=== PATIENT | female | born 1965 | race Two or more races ===

== ENCOUNTER 2016-08-25 09:08 | Outpatient (CLI) | payer MEDICARE, OTHER ==
[~2016-08-25 09:08] MED LIST: ASCO500T9 PO; BLOO-140 IN; DULA0.75 SQ; GLIM4TAB2 PO; IBUP-1955 PO; INSU100C7 SQ; INSU100V11 SQ; LEVO88TA5 PO; METF500T4 PO; MV W1TAB PO; SULF1TAB48 PO
== END 2016-08-25 23:59 | disposition home health service (06) ==
LOC: WOU 09:08
PROVIDERS: ATTEND Podiatrist Foot & Ankle Surgery
DX: E11.610 Type 2 diabetes mellitus with diabetic neuropathic arthropathy (principal); Z87.891 Personal history of nicotine dependence; B35.1 Tinea unguium; E11.42 Type 2 diabetes mellitus with diabetic polyneuropathy; E03.9 Hypothyroidism, unspecified; L97.329 Non-pressure chronic ulcer of left ankle with unspecified severity; M25.372 Other instability, left ankle
CPT/HCPCS: 29445; A6402

== ENCOUNTER 2016-09-04 09:20 | Outpatient (CLI) | payer MEDICARE, OTHER | END 2016-09-04 23:59 | disposition home health service (06) | LOC: WOU 09:20 | PROVIDERS: ATTEND Podiatrist Foot & Ankle Surgery | DX: I96 Gangrene, not elsewhere classified (principal); L97.321 Non-pressure chronic ulcer of left ankle limited to breakdown of skin; B35.1 Tinea unguium; E11.610 Type 2 diabetes mellitus with diabetic neuropathic arthropathy; E11.42 Type 2 diabetes mellitus with diabetic polyneuropathy; M25.372 Other instability, left ankle; E03.9 Hypothyroidism, unspecified; Z83.3 Family history of diabetes mellitus; Z82.3 Family history of stroke; Z82.49 Family history of ischemic heart disease and other diseases of the circulatory system; Z87.891 Personal history of nicotine dependence | CPT/HCPCS: 11042; A6402 ==

== ENCOUNTER 2016-09-16 09:07 | Outpatient (CLI) | payer MEDICARE, OTHER | END 2016-09-16 23:59 | disposition home health service (06) | LOC: WOU 09:07 | PROVIDERS: ATTEND Podiatrist Foot & Ankle Surgery | DX: E11.622 Type 2 diabetes mellitus with other skin ulcer (principal); L97.321 Non-pressure chronic ulcer of left ankle limited to breakdown of skin; E11.610 Type 2 diabetes mellitus with diabetic neuropathic arthropathy; E11.42 Type 2 diabetes mellitus with diabetic polyneuropathy; E03.9 Hypothyroidism, unspecified; Z87.891 Personal history of nicotine dependence | CPT/HCPCS: 11042; A6402 ==

== ENCOUNTER 2016-09-22 09:15 | Outpatient (CLI) | payer MEDICARE, OTHER ==
[2016-09-22] MEDS ORDERED: CEFTRIAXONE 1 G VIAL IM ONE (11:00)
[2016-09-22 11:04] LABS: CALCIUM, SERUM 9.1 mg/dL (8.5-10.1); CREATININE 1.2 mg/dL (0.6-1.3); POTASSIUM 4.5 mmol/L (3.5-5.1)
[2016-09-22 11:07] LABS: BASOPHILS # (AUTO) 0.1 /CMM (0.0-0.2); BASOPHILS % (AUTO) 0.8 % (0.0-2.0); DIFF TOTAL % 100 %; EOSINOPHILS # (AUTO) 0.3 /CMM (0.0-0.7); EOSINOPHILS % (AUTO) 4.4 % (0.0-6.0); HEMATOCRIT 28 % (33-45); HEMOGLOBIN 9.1 g/dL (11.5-14.8); LYMPHOCYTES # (AUTO) 1.6 /CMM (0.8-4.8); LYMPHOCYTES % (AUTO) 22.6 % (20.0-44.0); MEAN CORPUSCULAR HEMOGLOBIN 24 PG (26.0-33.0); MEAN CORPUSCULAR HGB CONC 33 g/dl (31.0-36.0); MEAN CORPUSCULAR VOLUME 74 fL (82-100); MONOCYTES # (AUTO) 0.3 /CMM (0.1-1.30); MONOCYTES % (AUTO) 4.4 % (2.0-12.0); NEUTROPHILS # (AUTO) 4.7 /CMM (1.8-8.9); NEUTROPHILS % (AUTO) 67.8 % (43.0-81.0); PLATELET COUNT (AUTO) 553 /CMM (150-450); RED BLOOD CELL COUNT(AUTO) 3.78 MIL/uL (4.0-5.2)
[2016-09-22 11:42] LABS: ERYTHROCYTE SEDIMENTATION RATE > 140 MM/HR (0-30)
== END 2016-09-22 23:59 | disposition home health service (06) ==
LOC: WOU 09:15
PROVIDERS: ATTEND Podiatrist Foot & Ankle Surgery
DX: E11.622 Type 2 diabetes mellitus with other skin ulcer (principal); L97.329 Non-pressure chronic ulcer of left ankle with unspecified severity; E11.610 Type 2 diabetes mellitus with diabetic neuropathic arthropathy; E11.42 Type 2 diabetes mellitus with diabetic polyneuropathy; L76.34 Postprocedural seroma of skin and subcutaneous tissue following other procedure; L03.116 Cellulitis of left lower limb; M71.072 Abscess of bursa, left ankle and foot; Z79.4 Long term (current) use of insulin; E03.9 Hypothyroidism, unspecified; Z79.899 Other long term (current) drug therapy; Z83.3 Family history of diabetes mellitus; Z82.3 Family history of stroke; Z82.49 Family history of ischemic heart disease and other diseases of the circulatory system; Z87.891 Personal history of nicotine dependence
CPT/HCPCS: 10140; 36415; 80048-TC; 85025-TC; 85652-TC; 87070-TC; 96372; A6402; A6407; J0696

== ENCOUNTER 2016-09-25 09:42 | Outpatient (CLI) | payer MEDICARE, OTHER | END 2016-09-25 23:59 | disposition home health service (06) | LOC: WOU 09:42 | PROVIDERS: ATTEND Podiatrist Foot & Ankle Surgery | DX: L03.116 Cellulitis of left lower limb (principal); B95.0 Streptococcus, group A, as the cause of diseases classified elsewhere; B95.1 Streptococcus, group B, as the cause of diseases classified elsewhere; B95.61 Methicillin susceptible Staphylococcus aureus infection as the cause of diseases classified elsewhere; M25.372 Other instability, left ankle; E11.610 Type 2 diabetes mellitus with diabetic neuropathic arthropathy; Z87.891 Personal history of nicotine dependence; M71.072 Abscess of bursa, left ankle and foot | CPT/HCPCS: A6402; A6407; G0463 ==

== ENCOUNTER 2016-09-30 08:30 | Outpatient (CLI) | payer MEDICARE, OTHER | END 2016-09-30 23:59 | disposition home health service (06) | LOC: WOU 08:30 | PROVIDERS: ATTEND Podiatrist Foot & Ankle Surgery | DX: E11.622 Type 2 diabetes mellitus with other skin ulcer (principal); L97.323 Non-pressure chronic ulcer of left ankle with necrosis of muscle; E11.42 Type 2 diabetes mellitus with diabetic polyneuropathy; E66.9 Obesity, unspecified; Z68.37 Body mass index [BMI] 37.0-37.9, adult; Z71.3 Dietary counseling and surveillance; E11.610 Type 2 diabetes mellitus with diabetic neuropathic arthropathy; E11.65 Type 2 diabetes mellitus with hyperglycemia; M84.472K Pathological fracture, left ankle, subsequent encounter for fracture with nonunion; M71.072 Abscess of bursa, left ankle and foot; B95.0 Streptococcus, group A, as the cause of diseases classified elsewhere; B95.1 Streptococcus, group B, as the cause of diseases classified elsewhere; B95.4 Other streptococcus as the cause of diseases classified elsewhere | CPT/HCPCS: 11043; A6402; A6407 ==

== ENCOUNTER 2016-10-07 08:20 | Outpatient (CLI) | payer MEDICARE, OTHER | END 2016-10-07 23:59 | disposition home health service (06) | LOC: WOU 08:20 | PROVIDERS: ATTEND Podiatrist Foot & Ankle Surgery | DX: E11.622 Type 2 diabetes mellitus with other skin ulcer (principal); L97.323 Non-pressure chronic ulcer of left ankle with necrosis of muscle; E11.42 Type 2 diabetes mellitus with diabetic polyneuropathy; M71.072 Abscess of bursa, left ankle and foot; B95.0 Streptococcus, group A, as the cause of diseases classified elsewhere; B95.1 Streptococcus, group B, as the cause of diseases classified elsewhere; B95.61 Methicillin susceptible Staphylococcus aureus infection as the cause of diseases classified elsewhere; E11.610 Type 2 diabetes mellitus with diabetic neuropathic arthropathy; M84.472K Pathological fracture, left ankle, subsequent encounter for fracture with nonunion; R60.0 Localized edema; E05.90 Thyrotoxicosis, unspecified without thyrotoxic crisis or storm; Z79.84 Long term (current) use of oral hypoglycemic drugs; Z79.4 Long term (current) use of insulin; Z79.899 Other long term (current) drug therapy | CPT/HCPCS: 11043; A6402; A6407 ==

== ENCOUNTER 2016-10-14 08:15 | Outpatient (CLI) | payer MEDICARE, OTHER | END 2016-10-14 23:59 | disposition home health service (06) | LOC: WOU 08:15 | PROVIDERS: ATTEND Podiatrist Foot & Ankle Surgery | DX: E11.622 Type 2 diabetes mellitus with other skin ulcer (principal); L97.323 Non-pressure chronic ulcer of left ankle with necrosis of muscle; E11.610 Type 2 diabetes mellitus with diabetic neuropathic arthropathy; E11.42 Type 2 diabetes mellitus with diabetic polyneuropathy; E05.90 Thyrotoxicosis, unspecified without thyrotoxic crisis or storm; Z87.891 Personal history of nicotine dependence; M71.072 Abscess of bursa, left ankle and foot; L03.116 Cellulitis of left lower limb; B95.0 Streptococcus, group A, as the cause of diseases classified elsewhere; B95.61 Methicillin susceptible Staphylococcus aureus infection as the cause of diseases classified elsewhere | CPT/HCPCS: 11043; 87070; 87077; A6402; A6407 ==

== ENCOUNTER 2016-10-21 10:38 | Outpatient (CLI) | payer MEDICARE, OTHER | END 2016-10-21 23:59 | disposition home health service (06) | LOC: WOU 10:38 | PROVIDERS: ATTEND Podiatrist Foot & Ankle Surgery | DX: E11.622 Type 2 diabetes mellitus with other skin ulcer (principal); L97.323 Non-pressure chronic ulcer of left ankle with necrosis of muscle; E11.42 Type 2 diabetes mellitus with diabetic polyneuropathy; E11.610 Type 2 diabetes mellitus with diabetic neuropathic arthropathy; L03.116 Cellulitis of left lower limb; B95.0 Streptococcus, group A, as the cause of diseases classified elsewhere; B95.61 Methicillin susceptible Staphylococcus aureus infection as the cause of diseases classified elsewhere; B96.89 Other specified bacterial agents as the cause of diseases classified elsewhere; M84.672K Pathological fracture in other disease, left ankle, subsequent encounter for fracture with nonunion; M25.372 Other instability, left ankle; M71.072 Abscess of bursa, left ankle and foot; Z79.4 Long term (current) use of insulin; Z79.84 Long term (current) use of oral hypoglycemic drugs; Z79.899 Other long term (current) drug therapy | CPT/HCPCS: 11043; A6402; A6407 ==

== ENCOUNTER 2016-10-28 07:57 | Outpatient (CLI) | payer MEDICARE, OTHER | END 2016-10-28 23:59 | disposition home health service (06) | LOC: WOU 07:57 | PROVIDERS: ATTEND Podiatrist Foot & Ankle Surgery | DX: E11.622 Type 2 diabetes mellitus with other skin ulcer (principal); L97.323 Non-pressure chronic ulcer of left ankle with necrosis of muscle; E11.610 Type 2 diabetes mellitus with diabetic neuropathic arthropathy; E11.42 Type 2 diabetes mellitus with diabetic polyneuropathy; M84.672K Pathological fracture in other disease, left ankle, subsequent encounter for fracture with nonunion; M25.372 Other instability, left ankle; Z79.4 Long term (current) use of insulin; Z79.84 Long term (current) use of oral hypoglycemic drugs; Z79.899 Other long term (current) drug therapy; Z87.891 Personal history of nicotine dependence; E05.90 Thyrotoxicosis, unspecified without thyrotoxic crisis or storm | CPT/HCPCS: 11043; 87070; A6402; A6407; 87186-TC ==

== ENCOUNTER 2016-11-04 08:20 | Outpatient (CLI) | payer MEDICARE, OTHER | END 2016-11-04 23:59 | disposition home health service (06) | LOC: WOU 08:20 | PROVIDERS: ATTEND Podiatrist Foot & Ankle Surgery | DX: E11.622 Type 2 diabetes mellitus with other skin ulcer (principal); L97.323 Non-pressure chronic ulcer of left ankle with necrosis of muscle; E11.610 Type 2 diabetes mellitus with diabetic neuropathic arthropathy; E11.42 Type 2 diabetes mellitus with diabetic polyneuropathy; M84.472K Pathological fracture, left ankle, subsequent encounter for fracture with nonunion; B95.8 Unspecified staphylococcus as the cause of diseases classified elsewhere; E05.90 Thyrotoxicosis, unspecified without thyrotoxic crisis or storm; Z87.891 Personal history of nicotine dependence; L03.116 Cellulitis of left lower limb | CPT/HCPCS: 11043; A6402 ==

== ENCOUNTER 2016-11-13 09:00 | Outpatient (CLI) | payer MEDICARE, OTHER | END 2016-11-13 23:59 | disposition home health service (06) | LOC: WOU 09:00 | PROVIDERS: ATTEND Podiatrist Foot & Ankle Surgery | DX: E11.622 Type 2 diabetes mellitus with other skin ulcer (principal); L97.323 Non-pressure chronic ulcer of left ankle with necrosis of muscle; E11.610 Type 2 diabetes mellitus with diabetic neuropathic arthropathy; E11.40 Type 2 diabetes mellitus with diabetic neuropathy, unspecified; M84.472K Pathological fracture, left ankle, subsequent encounter for fracture with nonunion; Z74.09 Other reduced mobility; E03.9 Hypothyroidism, unspecified; L03.116 Cellulitis of left lower limb; Z79.4 Long term (current) use of insulin; Z79.84 Long term (current) use of oral hypoglycemic drugs | CPT/HCPCS: 11043; A6402; A6407 ==

== ENCOUNTER 2016-11-18 08:15 | Outpatient (CLI) | payer MEDICARE, OTHER | END 2016-11-18 09:13 | disposition home or self-care (01) | LOC: RAD 08:15 | PROVIDERS: ATTEND Family Medicine | DX: R06.09 Other forms of dyspnea (principal) | CPT/HCPCS: 71020-TC ==

== ENCOUNTER 2016-11-18 10:02 | Outpatient (CLI) | payer MEDICARE, OTHER | END 2016-11-18 23:59 | disposition home health service (06) | LOC: WOU 10:02 | PROVIDERS: ATTEND Podiatrist Foot & Ankle Surgery | DX: E11.622 Type 2 diabetes mellitus with other skin ulcer (principal); L97.323 Non-pressure chronic ulcer of left ankle with necrosis of muscle; E11.610 Type 2 diabetes mellitus with diabetic neuropathic arthropathy; E11.40 Type 2 diabetes mellitus with diabetic neuropathy, unspecified; M84.472K Pathological fracture, left ankle, subsequent encounter for fracture with nonunion; Z74.09 Other reduced mobility; E03.9 Hypothyroidism, unspecified; Z79.4 Long term (current) use of insulin; Z79.84 Long term (current) use of oral hypoglycemic drugs | CPT/HCPCS: 11043; 87070-TC; A6402; A6407 ==

== ENCOUNTER 2016-12-02 09:46 | Outpatient (CLI) | payer MEDICARE, OTHER | END 2016-12-02 23:59 | disposition home health service (06) | LOC: WOU 09:46 | PROVIDERS: ATTEND Podiatrist Foot & Ankle Surgery | DX: E11.621 Type 2 diabetes mellitus with foot ulcer (principal); L97.323 Non-pressure chronic ulcer of left ankle with necrosis of muscle; E11.65 Type 2 diabetes mellitus with hyperglycemia; E11.610 Type 2 diabetes mellitus with diabetic neuropathic arthropathy; E11.40 Type 2 diabetes mellitus with diabetic neuropathy, unspecified; M84.472K Pathological fracture, left ankle, subsequent encounter for fracture with nonunion; E03.9 Hypothyroidism, unspecified; Z79.4 Long term (current) use of insulin; Z79.84 Long term (current) use of oral hypoglycemic drugs; Z79.899 Other long term (current) drug therapy | CPT/HCPCS: 11043; 87070; A6402; A6407 ==

== ENCOUNTER 2016-12-16 09:30 | Outpatient (CLI) | payer MEDICARE, OTHER | END 2016-12-16 23:59 | disposition home health service (06) | LOC: WOU 09:30 | PROVIDERS: ATTEND Podiatrist Foot & Ankle Surgery | DX: E11.622 Type 2 diabetes mellitus with other skin ulcer (principal); L97.323 Non-pressure chronic ulcer of left ankle with necrosis of muscle; E11.610 Type 2 diabetes mellitus with diabetic neuropathic arthropathy; E11.42 Type 2 diabetes mellitus with diabetic polyneuropathy; Z79.84 Long term (current) use of oral hypoglycemic drugs; Z79.4 Long term (current) use of insulin; E05.90 Thyrotoxicosis, unspecified without thyrotoxic crisis or storm; M84.472K Pathological fracture, left ankle, subsequent encounter for fracture with nonunion; Z87.891 Personal history of nicotine dependence; B35.1 Tinea unguium; M71.072 Abscess of bursa, left ankle and foot | CPT/HCPCS: 11043; A6402 ×2 ==

== ENCOUNTER 2016-12-30 10:00 | Outpatient (CLI) | payer MEDICARE, OTHER | END 2016-12-30 23:59 | disposition home health service (06) | LOC: WOU 10:00 | PROVIDERS: ATTEND Podiatrist Foot & Ankle Surgery | DX: E11.622 Type 2 diabetes mellitus with other skin ulcer (principal); L97.321 Non-pressure chronic ulcer of left ankle limited to breakdown of skin; E11.610 Type 2 diabetes mellitus with diabetic neuropathic arthropathy; E11.42 Type 2 diabetes mellitus with diabetic polyneuropathy; Z79.84 Long term (current) use of oral hypoglycemic drugs; Z79.4 Long term (current) use of insulin; E05.90 Thyrotoxicosis, unspecified without thyrotoxic crisis or storm; M84.472K Pathological fracture, left ankle, subsequent encounter for fracture with nonunion; Z87.891 Personal history of nicotine dependence; B35.1 Tinea unguium | CPT/HCPCS: 11042; A6402 ==

== ENCOUNTER 2017-01-12 08:15 | Outpatient (CLI) | payer MEDICARE, OTHER | END 2017-01-12 23:59 | disposition home health service (06) | LOC: WOU 08:15 | PROVIDERS: ATTEND Podiatrist Foot & Ankle Surgery | DX: E11.622 Type 2 diabetes mellitus with other skin ulcer (principal); L97.321 Non-pressure chronic ulcer of left ankle limited to breakdown of skin; E11.610 Type 2 diabetes mellitus with diabetic neuropathic arthropathy; E11.42 Type 2 diabetes mellitus with diabetic polyneuropathy; Z79.84 Long term (current) use of oral hypoglycemic drugs; Z79.4 Long term (current) use of insulin; M84.472K Pathological fracture, left ankle, subsequent encounter for fracture with nonunion; Z87.891 Personal history of nicotine dependence; L03.116 Cellulitis of left lower limb; E66.9 Obesity, unspecified; Z68.37 Body mass index [BMI] 37.0-37.9, adult; L60.0 Ingrowing nail; L03.032 Cellulitis of left toe; T81.30XA Disruption of wound, unspecified, initial encounter | CPT/HCPCS: A6402 ==

== ENCOUNTER 2017-01-22 08:26 | Outpatient (CLI) | payer MEDICARE, OTHER ==
[2017-01-22] MEDS ORDERED: ATOR10TA PO (12:32)
[2017-01-22] MEDS ORDERED: GLIM4TAB2 PO (12:32)
[2017-01-22] MEDS ORDERED: EMPA10TA PO (12:32)
[2017-01-22] MEDS ORDERED: HYDR10SY7 PO (12:32)
[2017-01-22] MEDS ORDERED: GABA-534 PO (12:32)
[2017-01-22] MEDS ORDERED: CHOL100044 PO (12:32)
[2017-01-22] MEDS ORDERED: MEGE400O PO (12:32)
[2017-01-22] MEDS ORDERED: INSU100V11 SQ (12:32)
[2017-01-22] MEDS ORDERED: DULA0.75 SQ (12:32)
[2017-01-22] MEDS ORDERED: LEVO88TA5 PO (12:32)
[2017-01-22] MEDS ORDERED: INSU100V7 SQ (12:32)
[2017-01-22] MEDS ORDERED: ASPI81TA2 PO (12:32)
== END 2017-01-22 23:59 | disposition other institution (70) ==
LOC: WOU 08:26
PROVIDERS: ATTEND Podiatrist Foot & Ankle Surgery
DX: E11.52 Type 2 diabetes mellitus with diabetic peripheral angiopathy with gangrene (principal); L03.032 Cellulitis of left toe; E11.621 Type 2 diabetes mellitus with foot ulcer; L97.321 Non-pressure chronic ulcer of left ankle limited to breakdown of skin; L97.529 Non-pressure chronic ulcer of other part of left foot with unspecified severity; E11.622 Type 2 diabetes mellitus with other skin ulcer; E11.42 Type 2 diabetes mellitus with diabetic polyneuropathy; M71.072 Abscess of bursa, left ankle and foot; E11.610 Type 2 diabetes mellitus with diabetic neuropathic arthropathy; Z87.311 Personal history of (healed) other pathological fracture
CPT/HCPCS: A6402; G0463

== ENCOUNTER 2017-02-03 11:00 | Outpatient (CLI) | payer MEDICARE, OTHER ==
[~2017-02-03 11:00] MED LIST changes: -ASCO500T9 PO; +ASPI81TA2 PO; +ATOR10TA PO; +CHOL100044 PO; +EMPA10TA PO; +GABA-534 PO; +HYDR10SY7 PO; -IBUP-1955 PO; -INSU100C7 SQ; +INSU100V7 SQ; +MEGE400O PO; -METF500T4 PO; -MV W1TAB PO; -SULF1TAB48 PO
== END 2017-02-03 23:59 | disposition home health service (06) ==
LOC: WOU 11:00
PROVIDERS: ATTEND Podiatrist Foot & Ankle Surgery
DX: E11.621 Type 2 diabetes mellitus with foot ulcer (principal); L97.521 Non-pressure chronic ulcer of other part of left foot limited to breakdown of skin; E11.42 Type 2 diabetes mellitus with diabetic polyneuropathy; E11.610 Type 2 diabetes mellitus with diabetic neuropathic arthropathy; Z87.891 Personal history of nicotine dependence; L03.116 Cellulitis of left lower limb; Z79.84 Long term (current) use of oral hypoglycemic drugs; Z79.4 Long term (current) use of insulin; Z79.899 Other long term (current) drug therapy; E05.90 Thyrotoxicosis, unspecified without thyrotoxic crisis or storm
CPT/HCPCS: A6207; A6402; G0463

== ENCOUNTER 2017-02-10 08:15 | Outpatient (CLI) | payer MEDICARE, OTHER | END 2017-02-10 23:59 | disposition home health service (06) | LOC: WOU 08:15 | PROVIDERS: ATTEND Podiatrist Foot & Ankle Surgery | DX: E11.621 Type 2 diabetes mellitus with foot ulcer (principal); L97.523 Non-pressure chronic ulcer of other part of left foot with necrosis of muscle; L60.0 Ingrowing nail; L03.032 Cellulitis of left toe; E11.65 Type 2 diabetes mellitus with hyperglycemia; E11.51 Type 2 diabetes mellitus with diabetic peripheral angiopathy without gangrene; E11.42 Type 2 diabetes mellitus with diabetic polyneuropathy; E66.9 Obesity, unspecified; Z68.37 Body mass index [BMI] 37.0-37.9, adult; I10 Essential (primary) hypertension; E11.610 Type 2 diabetes mellitus with diabetic neuropathic arthropathy | CPT/HCPCS: 11043; 11765; A6402 ×2; A6452; Z7610 ==

== ENCOUNTER 2017-02-17 11:19 | Outpatient (CLI) | payer MEDICARE, OTHER | END 2017-02-17 23:59 | disposition home health service (06) | LOC: WOU 11:19 | PROVIDERS: ATTEND Podiatrist Foot & Ankle Surgery | DX: E11.621 Type 2 diabetes mellitus with foot ulcer (principal); L97.523 Non-pressure chronic ulcer of other part of left foot with necrosis of muscle; E11.42 Type 2 diabetes mellitus with diabetic polyneuropathy; E11.610 Type 2 diabetes mellitus with diabetic neuropathic arthropathy; E03.9 Hypothyroidism, unspecified; Z87.891 Personal history of nicotine dependence; Z82.3 Family history of stroke; Z83.3 Family history of diabetes mellitus; Z82.49 Family history of ischemic heart disease and other diseases of the circulatory system; Z79.4 Long term (current) use of insulin; Z79.84 Long term (current) use of oral hypoglycemic drugs; Z79.82 Long term (current) use of aspirin | CPT/HCPCS: 11043; A6402 ==

== ENCOUNTER 2017-03-02 09:10 | Outpatient (CLI) | payer MEDICARE, OTHER | END 2017-03-02 23:59 | disposition home health service (06) | LOC: WOU 09:10 | PROVIDERS: ATTEND Podiatrist Foot & Ankle Surgery | DX: E11.621 Type 2 diabetes mellitus with foot ulcer (principal); L97.521 Non-pressure chronic ulcer of other part of left foot limited to breakdown of skin; E11.42 Type 2 diabetes mellitus with diabetic polyneuropathy; E11.610 Type 2 diabetes mellitus with diabetic neuropathic arthropathy; R60.0 Localized edema; Z87.891 Personal history of nicotine dependence; M25.372 Other instability, left ankle; Z79.4 Long term (current) use of insulin; Z79.84 Long term (current) use of oral hypoglycemic drugs; Z79.82 Long term (current) use of aspirin | CPT/HCPCS: 11042; A6402 ==

== ENCOUNTER 2017-03-10 09:20 | Outpatient (CLI) | payer MEDICARE, OTHER | END 2017-03-10 23:59 | disposition home health service (06) | LOC: WOU 09:20 | PROVIDERS: ATTEND Podiatrist Foot & Ankle Surgery | DX: E11.621 Type 2 diabetes mellitus with foot ulcer (principal); L97.521 Non-pressure chronic ulcer of other part of left foot limited to breakdown of skin; E11.42 Type 2 diabetes mellitus with diabetic polyneuropathy; R60.0 Localized edema; M25.372 Other instability, left ankle; M84.6 Pathological fracture in other disease | CPT/HCPCS: 11042; A6402 ×2 ==

== ENCOUNTER 2017-03-19 11:15 | Outpatient (CLI) | payer MEDICARE, OTHER | END 2017-03-19 23:59 | disposition home health service (06) | LOC: WOU 11:15 | PROVIDERS: ATTEND Podiatrist Foot & Ankle Surgery | DX: E11.621 Type 2 diabetes mellitus with foot ulcer (principal); L97.521 Non-pressure chronic ulcer of other part of left foot limited to breakdown of skin; E11.610 Type 2 diabetes mellitus with diabetic neuropathic arthropathy; M25.372 Other instability, left ankle; M84.6 Pathological fracture in other disease; R60.0 Localized edema | CPT/HCPCS: 15275; A6402; Q4133 ==

== ENCOUNTER 2017-03-30 09:39 | Outpatient (CLI) | payer MEDICARE, OTHER | END 2017-03-30 23:59 | disposition home health service (06) | LOC: WOU 09:39 | PROVIDERS: ATTEND Podiatrist Foot & Ankle Surgery | DX: E11.621 Type 2 diabetes mellitus with foot ulcer (principal); L97.521 Non-pressure chronic ulcer of other part of left foot limited to breakdown of skin; E11.610 Type 2 diabetes mellitus with diabetic neuropathic arthropathy; E11.42 Type 2 diabetes mellitus with diabetic polyneuropathy; Z79.4 Long term (current) use of insulin; Z79.84 Long term (current) use of oral hypoglycemic drugs; Z79.82 Long term (current) use of aspirin; R60.0 Localized edema | CPT/HCPCS: 15275; A6402; Q4133 ==

== ENCOUNTER 2017-04-05 10:35 | Outpatient (CLI) | payer MEDICARE, OTHER ==
[2017-04-05] MEDS ORDERED: GADOVERSETAMIDE 5 MMOL/10 ML VIAL IJ ONE (10:36)
== END 2017-04-05 23:59 | disposition home or self-care (01) ==
LOC: MRI 10:35
PROVIDERS: ATTEND Family Medicine
DX: K86.89 Other specified diseases of pancreas (principal)
CPT/HCPCS: 72197-TC; 74183-TC; A9579

== ENCOUNTER 2017-04-06 08:38 | Outpatient (CLI) | payer MEDICARE, OTHER | END 2017-04-06 23:59 | disposition home health service (06) | LOC: WOU 08:38 | PROVIDERS: ATTEND Podiatrist Foot & Ankle Surgery | DX: E11.621 Type 2 diabetes mellitus with foot ulcer (principal); L97.521 Non-pressure chronic ulcer of other part of left foot limited to breakdown of skin; E11.42 Type 2 diabetes mellitus with diabetic polyneuropathy; E11.610 Type 2 diabetes mellitus with diabetic neuropathic arthropathy; R60.0 Localized edema; M25.372 Other instability, left ankle; Z79.4 Long term (current) use of insulin; Z79.84 Long term (current) use of oral hypoglycemic drugs; Z79.899 Other long term (current) drug therapy | CPT/HCPCS: 15275; A6402 ==

== ENCOUNTER 2017-04-13 10:27 | Outpatient (CLI) | payer MEDICARE, OTHER | END 2017-04-13 23:59 | disposition home health service (06) | LOC: WOU 10:27 | PROVIDERS: ATTEND Podiatrist Foot & Ankle Surgery | DX: E11.42 Type 2 diabetes mellitus with diabetic polyneuropathy (principal); E11.610 Type 2 diabetes mellitus with diabetic neuropathic arthropathy; R60.0 Localized edema; M25.372 Other instability, left ankle; E53.8 Deficiency of other specified B group vitamins; Z79.84 Long term (current) use of oral hypoglycemic drugs; Z79.4 Long term (current) use of insulin | CPT/HCPCS: A6402; G0463 ==

== ENCOUNTER 2017-04-27 13:30 | Outpatient (CLI) | payer MEDICARE, OTHER | END 2017-04-27 23:59 | disposition home health service (06) | LOC: WOU 13:30 | PROVIDERS: ATTEND Podiatrist Foot & Ankle Surgery | DX: E11.621 Type 2 diabetes mellitus with foot ulcer (principal); E11.610 Type 2 diabetes mellitus with diabetic neuropathic arthropathy; E11.42 Type 2 diabetes mellitus with diabetic polyneuropathy; Z79.84 Long term (current) use of oral hypoglycemic drugs; Z79.4 Long term (current) use of insulin; M84.472K Pathological fracture, left ankle, subsequent encounter for fracture with nonunion; L03.116 Cellulitis of left lower limb; L97.521 Non-pressure chronic ulcer of other part of left foot limited to breakdown of skin | CPT/HCPCS: 11042; A6402 ==

== ENCOUNTER 2017-05-04 08:40 | Outpatient (CLI) | payer MEDICARE, OTHER | END 2017-05-04 23:59 | disposition home health service (06) | DX: E11.621 Type 2 diabetes mellitus with foot ulcer (principal); L97.521 Non-pressure chronic ulcer of other part of left foot limited to breakdown of skin; L97.323 Non-pressure chronic ulcer of left ankle with necrosis of muscle; E11.622 Type 2 diabetes mellitus with other skin ulcer; E11.610 Type 2 diabetes mellitus with diabetic neuropathic arthropathy; E11.42 Type 2 diabetes mellitus with diabetic polyneuropathy; Z79.84 Long term (current) use of oral hypoglycemic drugs; Z79.4 Long term (current) use of insulin; M84.472K Pathological fracture, left ankle, subsequent encounter for fracture with nonunion; L03.116 Cellulitis of left lower limb; R60.0 Localized edema | CPT/HCPCS: 11042; 11043; A6402 ==

== ENCOUNTER 2017-05-11 08:35 | Outpatient (CLI) | payer MEDICARE, OTHER | END 2017-05-11 23:59 | disposition home health service (06) | LOC: WOU 08:35 | PROVIDERS: ATTEND Podiatrist Foot & Ankle Surgery | DX: E11.621 Type 2 diabetes mellitus with foot ulcer (principal); L97.521 Non-pressure chronic ulcer of other part of left foot limited to breakdown of skin; E11.622 Type 2 diabetes mellitus with other skin ulcer; E11.610 Type 2 diabetes mellitus with diabetic neuropathic arthropathy; E11.42 Type 2 diabetes mellitus with diabetic polyneuropathy; Z79.84 Long term (current) use of oral hypoglycemic drugs; Z79.4 Long term (current) use of insulin; L97.323 Non-pressure chronic ulcer of left ankle with necrosis of muscle; M84.472K Pathological fracture, left ankle, subsequent encounter for fracture with nonunion; E66.9 Obesity, unspecified; Z68.37 Body mass index [BMI] 37.0-37.9, adult; Z71.3 Dietary counseling and surveillance; R60.0 Localized edema; M25.372 Other instability, left ankle | CPT/HCPCS: 11042; 11043; 97605; A6402 ==

== ENCOUNTER 2017-05-14 08:45 | Outpatient (CLI) | payer MEDICARE, OTHER | END 2017-05-14 23:59 | disposition home health service (06) | LOC: WOU 08:45 | PROVIDERS: ATTEND Podiatrist Foot & Ankle Surgery | DX: E11.622 Type 2 diabetes mellitus with other skin ulcer (principal); L97.323 Non-pressure chronic ulcer of left ankle with necrosis of muscle; E11.610 Type 2 diabetes mellitus with diabetic neuropathic arthropathy; M84.472K Pathological fracture, left ankle, subsequent encounter for fracture with nonunion; M25.372 Other instability, left ankle; Z79.82 Long term (current) use of aspirin; Z79.84 Long term (current) use of oral hypoglycemic drugs; Z79.4 Long term (current) use of insulin | CPT/HCPCS: 11043; 87070-TC; 87186-TC; 97605-TC; A6402 ==

== ENCOUNTER 2017-05-21 09:29 | Outpatient (CLI) | payer MEDICARE, OTHER | END 2017-05-21 23:59 | disposition home health service (06) | LOC: WOU 09:29 | PROVIDERS: ATTEND Podiatrist Foot & Ankle Surgery | DX: E11.622 Type 2 diabetes mellitus with other skin ulcer (principal); L97.323 Non-pressure chronic ulcer of left ankle with necrosis of muscle; L03.116 Cellulitis of left lower limb; B96.5 Pseudomonas (aeruginosa) (mallei) (pseudomallei) as the cause of diseases classified elsewhere; B37.89 Other sites of candidiasis; M84.472K Pathological fracture, left ankle, subsequent encounter for fracture with nonunion; E11.610 Type 2 diabetes mellitus with diabetic neuropathic arthropathy; Z79.84 Long term (current) use of oral hypoglycemic drugs; Z79.4 Long term (current) use of insulin; Z79.82 Long term (current) use of aspirin | CPT/HCPCS: 11043; 97605-TC; A6402 ==

== ENCOUNTER 2017-05-25 14:10 | Outpatient (CLI) | payer MEDICARE, OTHER | END 2017-05-25 23:59 | disposition home or self-care (01) | LOC: WOU 14:10 | PROVIDERS: ATTEND Internal Medicine Infectious Disease | DX: E11.69 Type 2 diabetes mellitus with other specified complication (principal); E11.610 Type 2 diabetes mellitus with diabetic neuropathic arthropathy; E11.621 Type 2 diabetes mellitus with foot ulcer; L97.529 Non-pressure chronic ulcer of other part of left foot with unspecified severity; E11.40 Type 2 diabetes mellitus with diabetic neuropathy, unspecified; M86.672 Other chronic osteomyelitis, left ankle and foot; B96.5 Pseudomonas (aeruginosa) (mallei) (pseudomallei) as the cause of diseases classified elsewhere; E66.9 Obesity, unspecified; B37.9 Candidiasis, unspecified | CPT/HCPCS: G0463 ==

== ENCOUNTER 2017-06-01 09:15 | Outpatient (CLI) | payer MEDICARE, OTHER | END 2017-06-01 23:59 | disposition home health service (06) | LOC: WOU 09:15 | PROVIDERS: ATTEND Podiatrist Foot & Ankle Surgery | DX: E11.622 Type 2 diabetes mellitus with other skin ulcer (principal); L97.323 Non-pressure chronic ulcer of left ankle with necrosis of muscle; E11.69 Type 2 diabetes mellitus with other specified complication; E11.610 Type 2 diabetes mellitus with diabetic neuropathic arthropathy; M86.672 Other chronic osteomyelitis, left ankle and foot; Z79.4 Long term (current) use of insulin; Z79.84 Long term (current) use of oral hypoglycemic drugs; M84.472K Pathological fracture, left ankle, subsequent encounter for fracture with nonunion | CPT/HCPCS: 11043; 97605; A6402 ==

== ENCOUNTER 2017-06-08 09:30 | Outpatient (CLI) | payer MEDICARE, OTHER | END 2017-06-08 23:59 | disposition home health service (06) | LOC: WOU 09:30 | PROVIDERS: ATTEND Podiatrist Foot & Ankle Surgery | DX: E11.622 Type 2 diabetes mellitus with other skin ulcer (principal); L97.323 Non-pressure chronic ulcer of left ankle with necrosis of muscle; E11.610 Type 2 diabetes mellitus with diabetic neuropathic arthropathy; E11.69 Type 2 diabetes mellitus with other specified complication; M86.672 Other chronic osteomyelitis, left ankle and foot; M84.472K Pathological fracture, left ankle, subsequent encounter for fracture with nonunion; R60.0 Localized edema; M25.372 Other instability, left ankle | CPT/HCPCS: 11043; 97605; A6402 ==

== ENCOUNTER 2017-06-18 09:37 | Outpatient (CLI) | payer MEDICARE, OTHER | END 2017-06-18 23:59 | disposition home health service (06) | LOC: WOU 09:37 | PROVIDERS: ATTEND Podiatrist Foot & Ankle Surgery | DX: E11.622 Type 2 diabetes mellitus with other skin ulcer (principal); L97.323 Non-pressure chronic ulcer of left ankle with necrosis of muscle; M84.472K Pathological fracture, left ankle, subsequent encounter for fracture with nonunion; E11.610 Type 2 diabetes mellitus with diabetic neuropathic arthropathy; E11.42 Type 2 diabetes mellitus with diabetic polyneuropathy; R60.0 Localized edema; E11.69 Type 2 diabetes mellitus with other specified complication; M86.672 Other chronic osteomyelitis, left ankle and foot; M25.372 Other instability, left ankle; Z79.84 Long term (current) use of oral hypoglycemic drugs; Z79.899 Other long term (current) drug therapy | CPT/HCPCS: 11043; 97605; A6402 ==

== ENCOUNTER 2017-06-25 08:00 | Outpatient (CLI) | payer MEDICARE, OTHER | END 2017-06-25 23:59 | disposition home health service (06) | LOC: WOU 08:00 | PROVIDERS: ATTEND Podiatrist Foot & Ankle Surgery | DX: E11.622 Type 2 diabetes mellitus with other skin ulcer (principal); L97.323 Non-pressure chronic ulcer of left ankle with necrosis of muscle; E11.610 Type 2 diabetes mellitus with diabetic neuropathic arthropathy; M25.372 Other instability, left ankle; E11.42 Type 2 diabetes mellitus with diabetic polyneuropathy; E11.69 Type 2 diabetes mellitus with other specified complication; M86.672 Other chronic osteomyelitis, left ankle and foot; M84.472K Pathological fracture, left ankle, subsequent encounter for fracture with nonunion | CPT/HCPCS: 11043; 97605; A6402 ==

== ENCOUNTER 2017-07-02 09:45 | Outpatient (CLI) | payer MEDICARE, OTHER | END 2017-07-02 23:59 | disposition home health service (06) | LOC: WOU 09:45 | PROVIDERS: ATTEND Podiatrist Foot & Ankle Surgery | DX: E11.622 Type 2 diabetes mellitus with other skin ulcer (principal); L97.329 Non-pressure chronic ulcer of left ankle with unspecified severity; E11.610 Type 2 diabetes mellitus with diabetic neuropathic arthropathy; E11.42 Type 2 diabetes mellitus with diabetic polyneuropathy; Z79.4 Long term (current) use of insulin; M84.472K Pathological fracture, left ankle, subsequent encounter for fracture with nonunion; M25.372 Other instability, left ankle | CPT/HCPCS: A6402; G0463 ==

== ENCOUNTER 2017-07-20 10:50 | Outpatient (CLI) | payer MEDICARE, OTHER | END 2017-07-20 23:59 | disposition home health service (06) | LOC: WOU 10:50 | PROVIDERS: ATTEND Podiatrist Foot & Ankle Surgery | DX: E11.610 Type 2 diabetes mellitus with diabetic neuropathic arthropathy (principal); E11.42 Type 2 diabetes mellitus with diabetic polyneuropathy; R60.0 Localized edema; M25.372 Other instability, left ankle; E66.9 Obesity, unspecified; Z68.37 Body mass index [BMI] 37.0-37.9, adult; Z79.4 Long term (current) use of insulin | CPT/HCPCS: A6402; G0463 ==

== ENCOUNTER 2017-08-25 10:38 | Outpatient (CLI) | payer MEDICARE, OTHER ==
[~2017-08-25 10:38] MED LIST changes: +ASPI-1169 PO; -ASPI81TA2 PO; +HYDR10SY16 PO; -HYDR10SY7 PO
== END 2017-08-25 23:59 | disposition home health service (06) ==
LOC: WOU 10:38
PROVIDERS: ATTEND Podiatrist Foot & Ankle Surgery
DX: E11.610 Type 2 diabetes mellitus with diabetic neuropathic arthropathy (principal); E11.42 Type 2 diabetes mellitus with diabetic polyneuropathy; Z86.31 Personal history of diabetic foot ulcer; R26.9 Unspecified abnormalities of gait and mobility; M96.0 Pseudarthrosis after fusion or arthrodesis
CPT/HCPCS: G0463

== ENCOUNTER 2017-09-02 09:49 | Emergency (ER) | payer MEDICARE, OTHER ==
[~2017-09-02] VITALS: Ht 167.6 cm; Wt 120.7 kg
[2017-09-02 10:02] VITALS: BP 184/90
== END 2017-09-02 10:57 | disposition home or self-care (01) ==
LOC: ER 09:55
DX: L72.9 Follicular cyst of the skin and subcutaneous tissue, unspecified (principal); L08.9 Local infection of the skin and subcutaneous tissue, unspecified; E03.9 Hypothyroidism, unspecified; E11.9 Type 2 diabetes mellitus without complications; Z79.4 Long term (current) use of insulin; Z79.82 Long term (current) use of aspirin
CPT/HCPCS: A4606; Z7610

== ENCOUNTER 2017-09-13 09:36 | Outpatient (CLI) | payer MEDICARE, OTHER | END 2017-09-13 23:59 | disposition home or self-care (01) | LOC: US 09:36 | PROVIDERS: ATTEND Surgery | DX: K76.0 Fatty (change of) liver, not elsewhere classified (principal); M25.521 Pain in right elbow | CPT/HCPCS: 73070-TC; 76700-TC ==

== ENCOUNTER 2017-09-13 14:28 | Outpatient (CLI) | payer MEDICARE, OTHER | END 2017-09-13 23:59 | disposition home health service (06) | LOC: WOU 14:28 | PROVIDERS: ATTEND Surgery | DX: L08.89 Other specified local infections of the skin and subcutaneous tissue (principal); E03.9 Hypothyroidism, unspecified; E11.51 Type 2 diabetes mellitus with diabetic peripheral angiopathy without gangrene; E66.01 Morbid (severe) obesity due to excess calories; Z68.41 Body mass index [BMI] 40.0-44.9, adult; E11.610 Type 2 diabetes mellitus with diabetic neuropathic arthropathy; E05.90 Thyrotoxicosis, unspecified without thyrotoxic crisis or storm | CPT/HCPCS: G0463 ==

== ENCOUNTER 2017-10-01 08:35 | Outpatient (CLI) | payer MEDICARE, OTHER | END 2017-10-01 23:59 | disposition home health service (06) | LOC: WOU 08:35 | PROVIDERS: ATTEND Podiatrist Foot & Ankle Surgery | DX: E11.610 Type 2 diabetes mellitus with diabetic neuropathic arthropathy (principal); E11.42 Type 2 diabetes mellitus with diabetic polyneuropathy; B35.1 Tinea unguium; M24.675 Ankylosis, left foot; L84 Corns and callosities; E66.9 Obesity, unspecified; Z68.41 Body mass index [BMI] 40.0-44.9, adult; Z71.3 Dietary counseling and surveillance; M25.372 Other instability, left ankle | CPT/HCPCS: G0463 ==

== ENCOUNTER 2017-10-29 10:13 | Outpatient (CLI) | payer MEDICARE, OTHER | END 2017-10-29 23:59 | disposition home health service (06) | LOC: WOU 10:13 | PROVIDERS: ATTEND Podiatrist Foot & Ankle Surgery | DX: E11.610 Type 2 diabetes mellitus with diabetic neuropathic arthropathy (principal); E11.42 Type 2 diabetes mellitus with diabetic polyneuropathy; R60.0 Localized edema; M25.372 Other instability, left ankle | CPT/HCPCS: G0463 ==

== ENCOUNTER 2017-11-30 09:54 | Outpatient (CLI) | payer MEDICARE, OTHER | END 2017-11-30 23:59 | disposition home or self-care (01) | LOC: WOU 09:54 | PROVIDERS: ATTEND Podiatrist Foot & Ankle Surgery | DX: E11.610 Type 2 diabetes mellitus with diabetic neuropathic arthropathy (principal); M25.372 Other instability, left ankle; Z99.3 Dependence on wheelchair; E66.9 Obesity, unspecified; Z68.41 Body mass index [BMI] 40.0-44.9, adult; E11.42 Type 2 diabetes mellitus with diabetic polyneuropathy; R60.0 Localized edema; Z79.4 Long term (current) use of insulin; Z79.82 Long term (current) use of aspirin; Z79.899 Other long term (current) drug therapy | CPT/HCPCS: G0463 ==

== ENCOUNTER → 2017-12-29 | Outpatient (CLI) | payer MEDICARE, OTHER | END | disposition home or self-care (01) | LOC: WOU 09:45 | PROVIDERS: ATTEND Podiatrist Foot & Ankle Surgery | DX: E11.610 Type 2 diabetes mellitus with diabetic neuropathic arthropathy (principal); Z79.4 Long term (current) use of insulin; L60.0 Ingrowing nail; M25.372 Other instability, left ankle; L03.032 Cellulitis of left toe; R60.9 Edema, unspecified; Z79.82 Long term (current) use of aspirin; Z79.899 Other long term (current) drug therapy | CPT/HCPCS: 11730 ==

== ENCOUNTER 2018-01-14 08:19 | Outpatient (CLI) | payer MEDICARE, OTHER | END 2018-01-14 23:59 | disposition home or self-care (01) | LOC: WOU 08:19 | PROVIDERS: ATTEND Podiatrist Foot & Ankle Surgery | DX: E11.621 Type 2 diabetes mellitus with foot ulcer (principal); L97.521 Non-pressure chronic ulcer of other part of left foot limited to breakdown of skin; L03.032 Cellulitis of left toe; Z79.4 Long term (current) use of insulin; E11.610 Type 2 diabetes mellitus with diabetic neuropathic arthropathy; E03.9 Hypothyroidism, unspecified; E66.01 Morbid (severe) obesity due to excess calories; Z68.41 Body mass index [BMI] 40.0-44.9, adult; Z79.82 Long term (current) use of aspirin; Z87.891 Personal history of nicotine dependence; M25.372 Other instability, left ankle | CPT/HCPCS: 11042; 87070-TC; 87186-TC ==

== ENCOUNTER 2018-01-28 13:32 | Outpatient (CLI) | payer MEDICARE, OTHER | END 2018-01-28 23:59 | disposition home or self-care (01) | LOC: RAD 13:32 | PROVIDERS: ATTEND Family Medicine | DX: Z01.818 Encounter for other preprocedural examination (principal) | CPT/HCPCS: 71046 ==

== ENCOUNTER 2018-02-04 09:06 | Outpatient (CLI) | payer MEDICARE, OTHER | END 2018-02-04 23:59 | disposition home or self-care (01) | LOC: WOU 09:06 | PROVIDERS: ATTEND Podiatrist Foot & Ankle Surgery | DX: E11.610 Type 2 diabetes mellitus with diabetic neuropathic arthropathy (principal); Z79.4 Long term (current) use of insulin; B35.1 Tinea unguium; E66.9 Obesity, unspecified; Z68.41 Body mass index [BMI] 40.0-44.9, adult; Z71.3 Dietary counseling and surveillance; E11.40 Type 2 diabetes mellitus with diabetic neuropathy, unspecified | CPT/HCPCS: G0463 ==

== ENCOUNTER 2018-03-09 08:30 | Outpatient (CLI) | payer MEDICARE, OTHER | END 2018-03-09 23:59 | disposition home or self-care (01) | LOC: WOU 08:30 | PROVIDERS: ATTEND Podiatrist Foot & Ankle Surgery | DX: E11.610 Type 2 diabetes mellitus with diabetic neuropathic arthropathy (principal); E11.42 Type 2 diabetes mellitus with diabetic polyneuropathy; R60.0 Localized edema; M25.372 Other instability, left ankle | CPT/HCPCS: 29445; Z7610 ==

== ENCOUNTER 2018-04-06 13:15 | Outpatient (CLI) | payer MEDICARE, OTHER | END 2018-04-06 23:59 | disposition home or self-care (01) | LOC: WOU 13:15 | PROVIDERS: ATTEND Podiatrist Foot & Ankle Surgery | DX: E11.610 Type 2 diabetes mellitus with diabetic neuropathic arthropathy (principal); E11.42 Type 2 diabetes mellitus with diabetic polyneuropathy; M96.0 Pseudarthrosis after fusion or arthrodesis; Z98.84 Bariatric surgery status; M25.372 Other instability, left ankle | CPT/HCPCS: 29445; Z7610 ==

== ENCOUNTER 2018-04-22 08:30 | Outpatient (CLI) | payer MEDICARE, OTHER | END 2018-04-22 23:59 | disposition home or self-care (01) | LOC: WOU 08:30 | PROVIDERS: ATTEND Podiatrist Foot & Ankle Surgery | DX: E11.622 Type 2 diabetes mellitus with other skin ulcer (principal); L97.322 Non-pressure chronic ulcer of left ankle with fat layer exposed; E11.42 Type 2 diabetes mellitus with diabetic polyneuropathy; E11.610 Type 2 diabetes mellitus with diabetic neuropathic arthropathy; E66.01 Morbid (severe) obesity due to excess calories; Z68.41 Body mass index [BMI] 40.0-44.9, adult; Z98.84 Bariatric surgery status; M84.472K Pathological fracture, left ankle, subsequent encounter for fracture with nonunion; E05.90 Thyrotoxicosis, unspecified without thyrotoxic crisis or storm; Z79.4 Long term (current) use of insulin; Z79.899 Other long term (current) drug therapy; M25.372 Other instability, left ankle | CPT/HCPCS: A6402; Z7610 ==

== ENCOUNTER 2018-05-13 08:30 | Outpatient (CLI) | payer MEDICARE, OTHER | END 2018-05-13 23:59 | disposition home or self-care (01) | LOC: WOU 08:30 | PROVIDERS: ATTEND Podiatrist Foot & Ankle Surgery | DX: L60.0 Ingrowing nail (principal); L03.032 Cellulitis of left toe; E11.610 Type 2 diabetes mellitus with diabetic neuropathic arthropathy; E11.42 Type 2 diabetes mellitus with diabetic polyneuropathy; Z86.31 Personal history of diabetic foot ulcer; Z98.84 Bariatric surgery status | CPT/HCPCS: 11730; A6402; Z7610 ==

== ENCOUNTER 2018-05-31 08:12 | Outpatient (CLI) | payer MEDICARE, OTHER | END 2018-05-31 23:59 | disposition home or self-care (01) | LOC: WOU 08:12 | PROVIDERS: ATTEND Podiatrist Foot & Ankle Surgery | DX: M14.672 Charcot's joint, left ankle and foot (principal); M14.671 Charcot's joint, right ankle and foot; M65.872 Other synovitis and tenosynovitis, left ankle and foot; R60.0 Localized edema | CPT/HCPCS: 29445; A6402; Z7610 ==

== ENCOUNTER 2018-08-04 11:53 | Outpatient (CLI) | payer MEDICARE, OTHER | END 2018-08-04 23:59 | disposition home or self-care (01) | LOC: RAD 11:53 | PROVIDERS: ATTEND Podiatrist Foot & Ankle Surgery | DX: M79.9 Soft tissue disorder, unspecified (principal); Z98.1 Arthrodesis status | CPT/HCPCS: 73600-TC ==

== ENCOUNTER 2018-08-05 08:35 | Outpatient (CLI) | END 2018-08-05 23:59 | disposition home or self-care (01) | DX: E11.610 Type 2 diabetes mellitus with diabetic neuropathic arthropathy (principal); E11.622 Type 2 diabetes mellitus with other skin ulcer; T81.31XA Disruption of external operation (surgical) wound, not elsewhere classified, initial encounter; L97.322 Non-pressure chronic ulcer of left ankle with fat layer exposed; Z98.1 Arthrodesis status; R60.0 Localized edema ==

== ENCOUNTER 2018-08-12 08:35 | Outpatient (CLI) | payer MEDICARE, OTHER | END 2018-08-12 23:59 | disposition home or self-care (01) | LOC: WOU 08:35 | PROVIDERS: ATTEND Podiatrist Foot & Ankle Surgery | DX: Z47.89 Encounter for other orthopedic aftercare (principal); M14.672 Charcot's joint, left ankle and foot; Z98.1 Arthrodesis status | CPT/HCPCS: A6402; G0463; Z7610 ==

== ENCOUNTER 2018-08-26 08:00 | Outpatient (CLI) | payer MEDICARE, OTHER | END 2018-08-26 23:59 | disposition home or self-care (01) | LOC: WOU 08:00 | PROVIDERS: ATTEND Podiatrist Foot & Ankle Surgery | DX: Z47.89 Encounter for other orthopedic aftercare (principal); E11.42 Type 2 diabetes mellitus with diabetic polyneuropathy; E11.610 Type 2 diabetes mellitus with diabetic neuropathic arthropathy; R60.0 Localized edema; M25.372 Other instability, left ankle; L76.82 Other postprocedural complications of skin and subcutaneous tissue; I96 Gangrene, not elsewhere classified; Z98.1 Arthrodesis status | CPT/HCPCS: 11042; 11045; A6402 ==

== ENCOUNTER 2018-09-05 09:12 | Outpatient (CLI) | payer MEDICARE, OTHER | END 2018-09-05 23:59 | disposition home or self-care (01) | LOC: CT 09:12 | PROVIDERS: ATTEND Podiatrist Foot & Ankle Surgery | DX: M86.8X6 Other osteomyelitis, lower leg (principal); M79.89 Other specified soft tissue disorders | CPT/HCPCS: 73700-TC ==

== ENCOUNTER 2018-09-09 08:05 | Outpatient (CLI) | payer MEDICARE, OTHER | END 2018-09-09 23:59 | disposition home or self-care (01) | LOC: WOU 08:05 | PROVIDERS: ATTEND Podiatrist Foot & Ankle Surgery | DX: Z47.89 Encounter for other orthopedic aftercare (principal); E11.622 Type 2 diabetes mellitus with other skin ulcer; L97.322 Non-pressure chronic ulcer of left ankle with fat layer exposed; E11.42 Type 2 diabetes mellitus with diabetic polyneuropathy; E11.610 Type 2 diabetes mellitus with diabetic neuropathic arthropathy; M25.372 Other instability, left ankle | CPT/HCPCS: 11042; 11045; A6402; Z7610 ==

== ENCOUNTER 2018-09-23 08:40 | Outpatient (CLI) | payer MEDICARE, MEDICAID | END 2018-09-23 23:59 | disposition home or self-care (01) | LOC: WOU 08:40 | PROVIDERS: ATTEND Podiatrist Foot & Ankle Surgery | DX: Z47.89 Encounter for other orthopedic aftercare (principal); Z98.1 Arthrodesis status; R60.0 Localized edema; E11.610 Type 2 diabetes mellitus with diabetic neuropathic arthropathy; E11.622 Type 2 diabetes mellitus with other skin ulcer; L97.322 Non-pressure chronic ulcer of left ankle with fat layer exposed | CPT/HCPCS: 17250; A6402 ==

== ENCOUNTER 2018-10-03 10:00 | Outpatient (CLI) | payer MEDICARE, MEDICAID | END 2018-10-03 23:59 | disposition home or self-care (01) | LOC: CT 10:00 | PROVIDERS: ATTEND Podiatrist Foot & Ankle Surgery | DX: M24.672 Ankylosis, left ankle (principal); Z98.890 Other specified postprocedural states | CPT/HCPCS: 73700-TC ==

== ENCOUNTER 2018-10-04 10:42 | Outpatient (CLI) | payer MEDICARE, OTHER | END 2018-10-04 23:59 | disposition home or self-care (01) | LOC: WOU 10:42 | PROVIDERS: ATTEND Podiatrist Foot & Ankle Surgery | DX: E11.610 Type 2 diabetes mellitus with diabetic neuropathic arthropathy (principal); E11.42 Type 2 diabetes mellitus with diabetic polyneuropathy; R60.0 Localized edema; Z98.1 Arthrodesis status | CPT/HCPCS: A6402; G0463 ==

== ENCOUNTER 2018-10-18 10:10 | Outpatient (CLI) | payer MEDICARE, MEDICAID | END 2018-10-18 23:59 | disposition home or self-care (01) | LOC: WOU 10:10 | PROVIDERS: ATTEND Podiatrist Foot & Ankle Surgery | DX: Z47.89 Encounter for other orthopedic aftercare (principal); Z98.1 Arthrodesis status; E11.610 Type 2 diabetes mellitus with diabetic neuropathic arthropathy; E11.42 Type 2 diabetes mellitus with diabetic polyneuropathy; R60.0 Localized edema | CPT/HCPCS: A6402; G0463 ==

== ENCOUNTER 2018-11-02 10:49 | Outpatient (CLI) | payer MEDICARE, MEDICAID | END 2018-11-02 23:59 | disposition home or self-care (01) | LOC: CT 10:49 | PROVIDERS: ATTEND Podiatrist Foot & Ankle Surgery | DX: M24.675 Ankylosis, left foot (principal); M85.872 Other specified disorders of bone density and structure, left ankle and foot; M62.572 Muscle wasting and atrophy, not elsewhere classified, left ankle and foot; M79.89 Other specified soft tissue disorders; M12.872 Other specific arthropathies, not elsewhere classified, left ankle and foot | CPT/HCPCS: 73700-TC ==

== ENCOUNTER 2018-11-04 10:50 | Outpatient (CLI) | payer MEDICARE, MEDICAID | END 2018-11-04 23:59 | disposition home or self-care (01) | LOC: WOU 10:50 | PROVIDERS: ATTEND Podiatrist Foot & Ankle Surgery | DX: E11.610 Type 2 diabetes mellitus with diabetic neuropathic arthropathy (principal); E11.42 Type 2 diabetes mellitus with diabetic polyneuropathy; M96.0 Pseudarthrosis after fusion or arthrodesis | CPT/HCPCS: A6402; G0463 ==

== ENCOUNTER 2018-11-11 10:30 | Outpatient (CLI) | payer MEDICARE, MEDICAID | END 2018-11-11 23:59 | disposition home or self-care (01) | LOC: WOU 10:30 | PROVIDERS: ATTEND Podiatrist Foot & Ankle Surgery | DX: E11.610 Type 2 diabetes mellitus with diabetic neuropathic arthropathy (principal); E11.621 Type 2 diabetes mellitus with foot ulcer; L97.322 Non-pressure chronic ulcer of left ankle with fat layer exposed; M96.0 Pseudarthrosis after fusion or arthrodesis; R60.0 Localized edema | CPT/HCPCS: A6402; G0463 ==

== ENCOUNTER 2018-11-15 10:00 | Outpatient (CLI) | payer MEDICARE, MEDICAID | END 2018-11-15 23:59 | disposition home or self-care (01) | LOC: WOU 10:00 | PROVIDERS: ATTEND Podiatrist Foot & Ankle Surgery | DX: E11.621 Type 2 diabetes mellitus with foot ulcer (principal); E11.610 Type 2 diabetes mellitus with diabetic neuropathic arthropathy; E11.42 Type 2 diabetes mellitus with diabetic polyneuropathy; L97.322 Non-pressure chronic ulcer of left ankle with fat layer exposed; M96.0 Pseudarthrosis after fusion or arthrodesis | CPT/HCPCS: 11042; A6402 ==

== ENCOUNTER 2018-12-02 10:15 | Outpatient (CLI) | payer MEDICARE, MEDICAID | END 2018-12-02 23:59 | disposition home or self-care (01) | LOC: WOU 10:15 | PROVIDERS: ATTEND Podiatrist Foot & Ankle Surgery | DX: Z47.89 Encounter for other orthopedic aftercare (principal); E11.42 Type 2 diabetes mellitus with diabetic polyneuropathy; E11.610 Type 2 diabetes mellitus with diabetic neuropathic arthropathy; R60.0 Localized edema; Z98.1 Arthrodesis status | CPT/HCPCS: A6402; G0463 ==

== ENCOUNTER 2018-12-12 09:36 | Outpatient (CLI) | payer MEDICARE, MEDICAID | END 2018-12-12 23:59 | disposition home or self-care (01) | LOC: CT 09:36 | PROVIDERS: ATTEND Podiatrist Foot & Ankle Surgery | DX: M25.472 Effusion, left ankle (principal); M24.672 Ankylosis, left ankle; Z98.890 Other specified postprocedural states | CPT/HCPCS: 73700-TC ==

== ENCOUNTER 2018-12-20 08:00 | Outpatient (CLI) | payer MEDICARE, MEDICAID | END 2018-12-20 23:59 | disposition home or self-care (01) | LOC: WOU 08:00 | PROVIDERS: ATTEND Podiatrist Foot & Ankle Surgery | DX: Z47.89 Encounter for other orthopedic aftercare (principal); Z98.1 Arthrodesis status; M14.672 Charcot's joint, left ankle and foot; M14.671 Charcot's joint, right ankle and foot; R60.0 Localized edema | CPT/HCPCS: A6402; G0463 ==

== ENCOUNTER 2019-01-03 08:30 | Outpatient (CLI) | payer MEDICARE, MEDICAID | END 2019-01-03 23:59 | disposition home or self-care (01) | LOC: WOU 08:30 | PROVIDERS: ATTEND Podiatrist Foot & Ankle Surgery | DX: E11.610 Type 2 diabetes mellitus with diabetic neuropathic arthropathy (principal); E11.42 Type 2 diabetes mellitus with diabetic polyneuropathy; L03.90 Cellulitis, unspecified; R60.9 Edema, unspecified | CPT/HCPCS: A6402 ×2; G0463 ==

== ENCOUNTER 2019-01-18 08:52 | Outpatient (CLI) | payer MEDICARE, MEDICAID | END 2019-01-18 23:59 | disposition home or self-care (01) | LOC: CT 08:52 | PROVIDERS: ATTEND Podiatrist Foot & Ankle Surgery | DX: M85.872 Other specified disorders of bone density and structure, left ankle and foot (principal); M62.572 Muscle wasting and atrophy, not elsewhere classified, left ankle and foot; M79.89 Other specified soft tissue disorders | CPT/HCPCS: 73700-TC ==

== ENCOUNTER 2019-01-20 08:30 | Outpatient (CLI) | payer MEDICARE, MEDICAID | END 2019-01-20 23:59 | disposition home or self-care (01) | LOC: WOU 08:30 | PROVIDERS: ATTEND Podiatrist Foot & Ankle Surgery | PROC: 2W5RXYZ Removal of Other Device on Left Lower Leg (ICD-10-PCS; principal; 2019-01-20) | DX: Z47.89 Encounter for other orthopedic aftercare (principal); Z98.1 Arthrodesis status; E11.42 Type 2 diabetes mellitus with diabetic polyneuropathy; E11.610 Type 2 diabetes mellitus with diabetic neuropathic arthropathy; T81.89XA Other complications of procedures, not elsewhere classified, initial encounter | CPT/HCPCS: 20670; A6402 ==

== ENCOUNTER 2019-01-31 08:00 | Outpatient (CLI) | payer MEDICARE, MEDICAID | END 2019-01-31 23:59 | disposition home or self-care (01) | LOC: WOU 08:00 | PROVIDERS: ATTEND Podiatrist Foot & Ankle Surgery | DX: Z47.89 Encounter for other orthopedic aftercare (principal); E11.610 Type 2 diabetes mellitus with diabetic neuropathic arthropathy; E11.42 Type 2 diabetes mellitus with diabetic polyneuropathy; M96.0 Pseudarthrosis after fusion or arthrodesis; Z98.1 Arthrodesis status; Z97.8 Presence of other specified devices; R60.0 Localized edema | CPT/HCPCS: A6402; G0463 ==

== ENCOUNTER 2019-02-07 08:00 | Outpatient (CLI) | payer MEDICARE, MEDICAID | END 2019-02-07 23:59 | disposition home or self-care (01) | LOC: WOU 08:00 | PROVIDERS: ATTEND Podiatrist Foot & Ankle Surgery | DX: Z47.89 Encounter for other orthopedic aftercare (principal); M14.672 Charcot's joint, left ankle and foot; L03.116 Cellulitis of left lower limb; M96.0 Pseudarthrosis after fusion or arthrodesis; Z98.1 Arthrodesis status; Z97.8 Presence of other specified devices; Z79.899 Other long term (current) drug therapy | CPT/HCPCS: A6402; G0463; J3490 ==

== ENCOUNTER 2019-02-14 08:18 | Outpatient (CLI) | payer MEDICARE, MEDICAID | END 2019-02-14 23:59 | disposition home or self-care (01) | LOC: WOU 08:18 | PROVIDERS: ATTEND Podiatrist Foot & Ankle Surgery | DX: Z47.89 Encounter for other orthopedic aftercare (principal); M14.671 Charcot's joint, right ankle and foot; L03.115 Cellulitis of right lower limb; R60.0 Localized edema; M96.0 Pseudarthrosis after fusion or arthrodesis; Z98.1 Arthrodesis status; Z79.899 Other long term (current) drug therapy | CPT/HCPCS: A6402; G0463 ==

== ENCOUNTER 2019-02-20 09:05 | Outpatient (CLI) | payer MEDICARE, MEDICAID | END 2019-02-20 23:59 | disposition home or self-care (01) | LOC: CT 09:05 | PROVIDERS: ATTEND Podiatrist Foot & Ankle Surgery | DX: M24.672 Ankylosis, left ankle (principal); A52.16 Charcot's arthropathy (tabetic); E11.9 Type 2 diabetes mellitus without complications; Z98.890 Other specified postprocedural states | CPT/HCPCS: 73700-TC ==

== ENCOUNTER 2019-02-22 12:45 | Outpatient (CLI) | payer MEDICARE, MEDICAID | END 2019-02-22 23:59 | disposition home or self-care (01) | LOC: WOU 12:45 | PROVIDERS: ATTEND Podiatrist Foot & Ankle Surgery | DX: Z47.89 Encounter for other orthopedic aftercare (principal); E11.42 Type 2 diabetes mellitus with diabetic polyneuropathy; E11.610 Type 2 diabetes mellitus with diabetic neuropathic arthropathy; M96.0 Pseudarthrosis after fusion or arthrodesis; Y83.8 Other surgical procedures as the cause of abnormal reaction of the patient, or of later complication, without mention of misadventure at the time of the procedure; Y79.8 Miscellaneous orthopedic devices associated with adverse incidents, not elsewhere classified | CPT/HCPCS: G0463 ==

== ENCOUNTER 2019-03-03 08:00 | Outpatient (CLI) | payer MEDICARE, MEDICAID | END 2019-03-03 23:59 | disposition home or self-care (01) | LOC: WOU 08:00 | PROVIDERS: ATTEND Podiatrist Foot & Ankle Surgery | PROC: 0SPGX5Z Removal of External Fixation Device from Left Ankle Joint, External Approach (ICD-10-PCS; principal; 2019-03-03) | DX: E11.610 Type 2 diabetes mellitus with diabetic neuropathic arthropathy (principal); M84.472K Pathological fracture, left ankle, subsequent encounter for fracture with nonunion | CPT/HCPCS: A6402; G0463; J3490 ==

== ENCOUNTER 2019-03-07 09:27 | Outpatient (CLI) | payer MEDICARE, MEDICAID | END 2019-03-07 23:59 | disposition home or self-care (01) | LOC: DS 09:27 | PROVIDERS: ATTEND Family Medicine | DX: Z01.818 Encounter for other preprocedural examination (principal); I25.10 Atherosclerotic heart disease of native coronary artery without angina pectoris; E11.9 Type 2 diabetes mellitus without complications; Z87.891 Personal history of nicotine dependence | CPT/HCPCS: 71046 ==

== ENCOUNTER 2019-03-10 05:01 | Day surgery (SDC) | payer MEDICARE, MEDICAID ==
[~2019-03-10] VITALS: Ht 167.6 cm; Wt 92.5 kg
--- NOTE | 2019-03-10 05:30 | NUR ---
ms kerline initial notes Received a direct admit for day surgery by wheelchair accompanied by admitting staff. pt is alert oriented able to answered all my question. denies any pain or any discomfort. she still have dressing on her left ankle dry and intact. No signs of any distress or any discomfort noted. heplock inserted on her right ac gauge 20 and secured with plastic tape. pt signed all the consent and MRSA swab also done. admission assessment done and recorded. oriented where she and how to used the call light system. belonging also checked by POSTPARTUM NURSE as hospital protocol. kept her warm and comfortable at all times.
[2019-03-10 05:51] VITALS: BP 107/69
[2019-03-10] MEDS ORDERED: ANESTHESIA TRAY IN PYXIS 1 EA TRAY MC ONE (06:37)
[2019-03-10] MEDS ORDERED: FENTANYL PF 100MCG/2ML AMPUL ONE (06:55)
[2019-03-10] MEDS ORDERED: MIDAZOLAM HCL 2 MG/2ML VIAL ONE (06:56)
[2019-03-10] MEDS ORDERED: ROCURONIUM BROMIDE 50 MG/5 ML ONE (06:56)
--- NOTE | 2019-03-10 07:00 | NUR ---
wagon driver salesperson closing notes pt awake and alert picked up by day surgery nurse. will endorse to am nurse for continuity of care.
[2019-03-10 08:00] VITALS: BP 113/58
--- NOTE | 2019-03-10 09:00 | NUR ---
Pt back from day surgery, awake, alert, oriented, verbally responsive, s/p L ankle wirering removal, pt has already orders to dc home from day surgery, now will dc home later, and to tolerate fluids.
[2019-03-10] MEDS ORDERED: OMEP40CA37 PO (10:07)
[2019-03-10] MEDS ORDERED: LEVO25TA7 PO (10:07)
--- NOTE | 2019-03-10 11:30 | NUR ---
Pt has orders to dc home, dc home instructions were given to pt able to understand all, family will pick pt up later, iv dc by CN, and boot to L foot inplace.
== END 2019-03-10 16:00 | disposition home or self-care (01) ==
LOC: DS 05:01 → UNDOADMIN 05:13 → MED 05:13 → UNDODISIN 11:37 → DS 16:00
PROVIDERS: ATTEND Podiatrist Foot & Ankle Surgery
PROC: 0QPHX5Z Removal of External Fixation Device from Left Tibia, External Approach (ICD-10-PCS; principal; 2019-03-10)
DX: Z44.8 Encounter for fitting and adjustment of other external prosthetic devices (principal); E11.610 Type 2 diabetes mellitus with diabetic neuropathic arthropathy; E11.42 Type 2 diabetes mellitus with diabetic polyneuropathy; Z98.1 Arthrodesis status; D64.9 Anemia, unspecified; I25.10 Atherosclerotic heart disease of native coronary artery without angina pectoris; M86.9 Osteomyelitis, unspecified; E66.01 Morbid (severe) obesity due to excess calories; F32.9 Major depressive disorder, single episode, unspecified; Z68.41 Body mass index [BMI] 40.0-44.9, adult; K21.9 Gastro-esophageal reflux disease without esophagitis; Z79.899 Other long term (current) drug therapy
CPT/HCPCS: 73610-TC; 82962-TC; 84703-TC; 87081-TC; 97116-TC; 97530-TC; A6209; G0378; J0690; J2250; J2405; J2704; J2765; J3010; J3490

== ENCOUNTER 2019-03-17 08:10 | Outpatient (CLI) | payer MEDICARE, MEDICAID ==
[~2019-03-17 08:10] MED LIST changes: -ASPI-1169 PO; -ATOR10TA PO; -BLOO-140 IN; -CHOL100044 PO; -DULA0.75 SQ; -EMPA10TA PO; -GABA-534 PO; -GLIM4TAB2 PO; -HYDR10SY16 PO; -INSU100V11 SQ; -INSU100V7 SQ; +LEVO25TA7 PO; -LEVO88TA5 PO; -MEGE400O PO; +OMEP40CA37 PO
== END 2019-03-17 23:59 | disposition home or self-care (01) ==
LOC: WOU 08:10
PROVIDERS: ATTEND Podiatrist Foot & Ankle Surgery
DX: Z47.89 Encounter for other orthopedic aftercare (principal); Z98.1 Arthrodesis status; R60.0 Localized edema; M14.672 Charcot's joint, left ankle and foot
CPT/HCPCS: G0463

== ENCOUNTER 2019-03-31 08:00 | Outpatient (CLI) | payer MEDICARE, MEDICAID ==
[2019-04-05] MEDS ORDERED: RXVAN XX (11:16)
[2019-04-05] MEDS ORDERED: CEFE1PIG3 IV (11:16)
[2019-04-05] MEDS ORDERED: VANC1FRO2 IV (11:16)
== END 2019-03-31 23:59 | disposition home or self-care (01) ==
LOC: WOU 08:00
PROVIDERS: ATTEND Podiatrist Foot & Ankle Surgery
DX: E11.610 Type 2 diabetes mellitus with diabetic neuropathic arthropathy (principal); M84.472K Pathological fracture, left ankle, subsequent encounter for fracture with nonunion; R60.0 Localized edema; E66.9 Obesity, unspecified; Z68.30 Body mass index [BMI] 30.0-30.9, adult
CPT/HCPCS: G0463

== ENCOUNTER 2019-04-02 10:15 | Inpatient (IN) | payer MEDICARE, MEDICAID ==
[~2019-04-02] VITALS: Ht 167.6 cm; Wt 93.2 kg
--- NOTE | 2019-04-02 10:46 | NUR ---
"C/O LT FOOT PAIN. POST OP SX 3 WKS AGO. " PIN IS STICKING OUT ". PT STS SHETOOK 6 TABS OF 500MG OF TYL @ 0930" PT AAOX4, -SOB, NAD NOTED, VSS, PENDING MD PATEL
--- NOTE | 2019-04-02 12:32 | NUR ---
CALLED DR GAN
[2019-04-02 12:54] LABS: BASOPHILS # (AUTO) 0.1 /CMM (0.0-0.2); BASOPHILS % (AUTO) 0.8 % (0.0-2.0); EOSINOPHILS % (AUTO) 0.3 % (0.0-6.0); HEMATOCRIT 34 % (33-45); HEMOGLOBIN 11.2 g/dL (11.5-14.8); LYMPHOCYTES # (AUTO) 1.3 /CMM (0.8-4.8); LYMPHOCYTES % (AUTO) 12.5 % (20.0-44.0); MEAN CORPUSCULAR HGB CONC 33 g/dl (31.0-36.0); MEAN CORPUSCULAR VOLUME 78 fL (82-100); MONOCYTES # (AUTO) 0.7 /CMM (0.1-1.30); MONOCYTES % (AUTO) 6.7 % (2.0-12.0); NEUTROPHILS # (AUTO) 8.6 /CMM (1.8-8.9); NEUTROPHILS % (AUTO) 79.7 % (43.0-81.0); PLATELET COUNT (AUTO) 380 /CMM (150-450); WHITE BLOOD COUNT (AUTO) 10.7 K/uL (4.3-11.0)
[2019-04-02 12:59] LABS: CALCIUM, SERUM 8.5 mg/dL (8.5-10.1); CREATININE 0.8 mg/dL (0.6-1.3); POTASSIUM 4.6 mmol/L (3.5-5.1)
[2019-04-02] MEDS ORDERED: IV NS 0.9% 1,000 ML BAG IV ONE (13:00)
[2019-04-02] MEDS ORDERED: ONDANSETRON HCL/PF 4 MG/2 ML VIAL IVP ONE (13:00)
[2019-04-02] MEDS ORDERED: MORPHINE SULFATE INJ 2 MG/ML DISP.SYRIN IV ONE (13:00)
[2019-04-02] MEDS ORDERED: VANCOMYCIN 1 GM in IV D5W 250 ML IV ONE (13:00)
[2019-04-02] MEDS ORDERED: PIPERACILLIN /TAZOBACTAM 3.375 G in IV D5W 50 ML IV ONE (13:00)
--- NOTE | 2019-04-02 13:02 | NUR ---
CALLED [facility]. [facility]IC[employer] GROWER WAS PAGED
--- NOTE | 2019-04-02 13:06 | NUR ---
CALLED [facility] FOR MS BED
[2019-04-02] MEDS ORDERED: ASCO500T9 PO (13:08)
[2019-04-02] MEDS ORDERED: CHOL100044 PO (13:08)
[2019-04-02] MEDS ORDERED: MULT-24 PO (13:08)
[2019-04-02] MEDS ORDERED: RANI300T4 PO (13:08)
[2019-04-02] MEDS ORDERED: ERGO500040 PO (13:08)
--- NOTE | 2019-04-02 13:49 | NUR ---
REPORT GIVEN TO LUMA JIANG FOR MARISEL PT WILL BE TRANSPORTORED TO 3RD FLOOR VIA [facility]
[2019-04-02] MEDS ORDERED: MORPHINE SULFATE INJ 4 MG/ML DISP.SYRIN ONE (14:02)
[2019-04-02] MEDS ORDERED: ONDANSETRON HCL/PF 4 MG/2 ML VIAL ONE (14:02)
--- NOTE | 2019-04-02 14:15 | NUR ---
RECEIVED PATIENT FROM ER VIA [facility]. PATIENT IN STABLE CONDITION. A/OX4, ABLE TO MAKE NEEDS KNOWN. ABLE TO TRANSFER TO BED FROM [facility] BY HERSELF. PATIENT IS WHEELCHAIRBOUND, ABLE TO MOVE HERSELF INDEPENDENTLY IN BED. PER PATIENT, SHE DOESNT HAVE ANY REDNESS OR OPEN WOUNDS ON THE BACK OR SACRUM AND REFUSED BODY CHECK, "TAKE MY WORD FOR IT" SHE SAID. PER PATIENT, SHE'S HERE BECAUSE DR GAN WILL FIX HER LEG. PATIENT WAS S/P PINS AND MARIO REMOVAL 3 WEEKS AGO. NOTED WITH LLE SWELLING. ALL BELONGINGS CHECKED AND NOTED BY ANT HERNANDEZ. WHEELCHAIR AT BEDSIDE. PATIENT WEARING UPPER DENTURES ONLY. VS WNL. NOT IN ANY FORM OF DISTRESS, NO SOB, DENIED PAIN OR DISCOMFORT AT THIS TIME. IV ACCESS INTACT AND PATENT. KEPT PATIENT SAFE AND COMFORTABLE. BED IN LOW/LOCKED POSITION, SIDERAILS UPX2, CALL LIGHT IN REACH. WILL CONITNUE TO MONIOTR ACCORDINGLY.
--- NOTE | 2019-04-02 14:20 | NUR ---
RN NOTES LLE ELEVATED WITH PILLOWS
[2019-04-02] MEDS ORDERED: MAG HYDROX/AL HYDROX/SIMETH 30 ML UDC PO PRN (14:30)
[2019-04-02] MEDS ORDERED: Z GUARD REMEDY 2 OZ OINT TP PRN (14:30)
[2019-04-02] MEDS ORDERED: MAGNESIUM HYDROXIDE 30 ML UDC PO PRN (14:30)
[2019-04-02] MEDS ORDERED: ACETAMINOPHEN 325 MG TABLET PO PRN (14:30)
[2019-04-02] MEDS ORDERED: HYDROCODONE/APAP 5/325MG 1 EACH TABLET PO PRN (14:30)
[2019-04-02] MEDS ORDERED: ONDANSETRON HCL/PF 4 MG/2 ML VIAL IVP PRN (14:30)
[2019-04-02] MEDS ORDERED: FEE PK DOSING 1 MIN EA MC ONE (14:57)
[2019-04-02 16:00] VITALS: BP 96/56
[2019-04-02] MEDS ORDERED: Medication Not On Formulary EA (Omeprazole 40 MG) PO SCH (17:00)
[2019-04-02] MEDS: PIPERACILLIN /TAZOBACTAM 3.375 G in IV D5W 50 ML IV SCH (17:40)
[2019-04-02] MEDS: IV NS 0.9% 1,000 ML IV PRN (17:40)
--- NOTE | 2019-04-02 19:05 | NUR ---
RN CLOSING NOTES PATIENT IN STABLE CONDITION. ALL NEEDS ATTENDED AND PROVIDED. ALL DUE MEDICATIONS GIVEN ORDERED. ASSISTED WITH ADLS. KEPT PATIENT SAFE AND COMFORTABLE. BED IN LOW/LOCKED POSITION, SIDERAILS UPX2, CALL LIGHT IN REACH. ENDORSED TO DEIDRE ORTEGA FOR MARISEL
--- NOTE | 2019-04-02 19:10 | NUR ---
MS RN NOTES RECEIVED RESTING COMFORTABLY ON BED,A/O X4,BREATHING NORMAL,PAIN TOLERABLE AT THE MOMENT.LEFT LEG CELLULITIS ELEVATED ON PILLOWS,IVF NS AT 75ML/HR RATE ON PROGRESS ON YON,SITE PATENT.NPO STATUS,AWAITING SURGICAL CONSULT WITH DR SEGOVIA.CALL LIGHT IN REACH,NEEDS ANTICIPATED.
[2019-04-02 19:56] VITALS: BP 104/48
[2019-04-02 20:00] VITALS: BP 104/48
[2019-04-02] MEDS: PANTOPRAZOLE 40 MG TABLET.DR PO SCH (20:52)
--- NOTE | 2019-04-02 22:45 | NUR ---
MS RN NOTES DR CAM CAME TO SEE PATIENT.NO NEW ORDER BUT PER PATIENT,DR REESE WILL SEE PATIENT IN THE MORNING.
[2019-04-03] MEDS: PIPERACILLIN /TAZOBACTAM 3.375 G in IV D5W 50 ML IV SCH ×5 (00:08→23:35)
[2019-04-03] MEDS: VANCOMYCIN 1 GM in IV D5W 250 ML IV SCH ×2 (01:37→14:46)
[2019-04-03 06:19] LABS: CALCIUM, SERUM 7.5 mg/dL (8.5-10.1); CREATININE 0.9 mg/dL (0.6-1.3); MAGNESIUM 1.7 mg/dL (1.8-2.4); PHOSPHORUS 3.5 mg/dL (2.5-4.9)
[2019-04-03 06:26] LABS: THYROID STIMULATING HORMONE 1.093 uIU/mL (0.358-3.74)
[2019-04-03 06:28] LABS: BASOPHILS # (AUTO) 0.1 /CMM (0.0-0.2); BASOPHILS % (AUTO) 0.9 % (0.0-2.0); EOSINOPHILS % (AUTO) 0.6 % (0.0-6.0); HEMATOCRIT 28 % (33-45); LYMPHOCYTES # (AUTO) 1.5 /CMM (0.8-4.8); LYMPHOCYTES % (AUTO) 19.8 % (20.0-44.0); MEAN CORPUSCULAR HGB CONC 33 g/dl (31.0-36.0); MEAN CORPUSCULAR VOLUME 78 fL (82-100); MONOCYTES # (AUTO) 0.6 /CMM (0.1-1.30); MONOCYTES % (AUTO) 7.9 % (2.0-12.0); NEUTROPHILS # (AUTO) 5.4 /CMM (1.8-8.9); NEUTROPHILS % (AUTO) 70.8 % (43.0-81.0); PLATELET COUNT (AUTO) 310 /CMM (150-450); RED BLOOD CELL COUNT(AUTO) 3.53 MIL/uL (4.0-5.2); WHITE BLOOD COUNT (AUTO) 7.6 K/uL (4.3-11.0)
--- NOTE | 2019-04-03 06:30 | NUR ---
MS RN NOTES SEEN BY DR REESE,SAID NO PROCEDURE TO BE DONE AT BEDSIDE TODAY.FOOT X-RAY FIRST THEN POSSIBLE PROCEDURE TO BE DONE IN OR.
[2019-04-03] MEDS ORDERED: LIDOCAINE 1% INJ 50 ML MDV IJ ONE (07:00)
--- NOTE | 2019-04-03 07:00 | NUR ---
MS RN NOTES PAIN TOLERABLE,OFFERED PAIN MEDICINE BUT REFUSED.IVF INFUSING.IV ABX TOLERATED WELL.IN NO ACUTE DISTRESS.ENDORSED TO LUMA JIANG FOR MARISEL.
--- NOTE | 2019-04-03 07:28 | NUR ---
RN OPENING NOTES RECEIVED PATIENT IN BED RESTING. A/OX3, ABLE TO MAKE NEEDS KNOWN. NOT IN ANY FORM OF DISTRESS. NO SOB. DENIED PAIN OR DISCOMFORT AT THIS TIME. IV ACCESS INTACT AND PATENT. KEPT PATIENT SAFE AND COMFORTABLE. BED IN LOW/LOCKED POSITION, SIDERAILS UPX2, CALL LIGHT IN REACH. WILL CONTINUE TO MONITOR ACCORDINGLY.
[2019-04-03 08:00] VITALS: BP 104/55
[2019-04-03] MEDS: CHOLECALCIFEROL 1,000 UNIT TABLET (VIT D3) PO SCH (08:41)
[2019-04-03] MEDS: PANTOPRAZOLE 40 MG TABLET.DR PO SCH ×2 (08:41→21:49)
[2019-04-03] MEDS: MULTIVITAMINS,THERAGRAN 1 UDTAB TABLET PO SCH (08:41)
[2019-04-03] MEDS: ASCORBIC ACID 500 MG TABLET PO SCH (08:41)
[2019-04-03] MEDS: FAMOTIDINE (20 MG) 20 MG TABLET PO SCH (08:41)
[2019-04-03] MEDS: LEVOTHYROXINE SODIUM 50 MCG TABLET PO SCH (08:43)
[2019-04-03] MEDS ORDERED: ERGOCALCIFEROL (VITAMIN D 2) 50,000 UNIT CAPSULE PO SCH (09:00)
[2019-04-03] MEDS: Magnesium 1GM/D5W 100ML PREMIX 100 ML IV SCH ×2 (11:09→12:41)
[2019-04-03] MEDS: IV NS 0.9% 1,000 ML IV PRN (11:18)
[2019-04-03 13:48] LABS: IRON, SERUM 13 ug/dl (50-175); TOTAL IRON BINDING CAPACITY 292 ug/dl (250-450)
[2019-04-03 14:01] LABS: FERRITIN 47 ng/mL (8-388)
[2019-04-03 16:00] VITALS: BP 116/59
[2019-04-03] MEDS: DOCUSATE SODIUM 100 MG CAPSULE PO SCH (17:39)
[2019-04-03] MEDS: LACTOBACILLUS RHAMNOSUS GG 1 EACH CAP.SPRINK PO SCH (17:39)
[2019-04-03 18:29] LABS: HEMOGLOBIN 9.4 g/dL (11.5-14.8)
--- NOTE | 2019-04-03 19:35 | NUR ---
RN OPENING NOTES RECEIVED REPORT FROM DAYSHIFT RN LUMA. FOUND Pt AWAKE, RESTING IN BED. NO S/S OF ACUTE DISTRESS OR SOB NOTED. Pt IS A/OX4, VERBAL, ABLE TO MAKE NEEDS KNOWN. IV ACCESS ON YON #20G. Pt IS SCHEDULED FOR LT ANKLE SURGERY TOMORROW FOR HARDWARE REMOVAL. CONSENT SIGNED AND PLACED IN CHART. SAFETY MEASURES IN PLACE. BED LOW, LOCKED, HOB ELEVATED, SIDE RAILS UP, CALL LIGHT AND BEDSIDE TABLE WITHIN REACH. WILL CONTINUE TO MONITOR Pt's CONDITION AND SAFETY THROUGHOUT THE NIGHT.
--- NOTE | 2019-04-03 19:37 | NUR ---
RN CLOSING NOTES PATIENT IN STABLE CONDITION. ALL NEEDS ATTENDED AND PROVIDED. ALL DUE MEDICATIONS GIVEN ORDERED. ASSISTED WITH ADLS. KEPT PATIENT SAFE AND COMFORTABLE. BED IN LOW/LOCKED POSITION, SIDERAILS UPX2, CALL LIGHT IN REACH. ENDORSED TO DEIDRE [place] FOR MARISEL.
[2019-04-03 20:00] VITALS: BP 113/64
[2019-04-03 20:19] VITALS: BP 113/64
--- NOTE | 2019-04-03 22:55 | NUR ---
RN NOTES Pt's PREVIOUS IV ACCESS WAS INFILTRATED, WITH REDNESS AROUND THE AREA NOTED. PLACED NEW IV ACCESS ON RFA #22G. REMOVED OLD IV ACCESS ON YON. SECURED WITH GAUZE AND TAPE. NO SIGNS OF BLEEDING NOTED.
[2019-04-03] MEDS: MORPHINE SULFATE INJ 2 MG/ML DISP.SYRIN IV PRN (23:04)
--- NOTE | 2019-04-04 02:04 | NUR ---
RN NOTES VANCO TROUGH IS STILL PENDING. UNABLE TO GIVE SCHEDULED VANCO @0200. WAITING FOR RESULTS.
[2019-04-04] MEDS: VANCOMYCIN 1 GM in IV D5W 250 ML IV SCH ×2 (02:44→16:06)
--- NOTE | 2019-04-04 02:45 | NUR ---
RN NOTES VANCO TROUGH RESULT: 12.
[2019-04-04] MEDS: PIPERACILLIN /TAZOBACTAM 3.375 G in IV D5W 50 ML IV SCH ×3 (06:08→17:57)
[2019-04-04 06:27] LABS: BASOPHILS % (AUTO) 0.7 % (0.0-2.0); HEMATOCRIT 29 % (33-45); HEMOGLOBIN 9.7 g/dL (11.5-14.8); LYMPHOCYTES # (AUTO) 1.4 /CMM (0.8-4.8); LYMPHOCYTES % (AUTO) 19.6 % (20.0-44.0); MEAN CORPUSCULAR HGB CONC 33 g/dl (31.0-36.0); MEAN CORPUSCULAR VOLUME 79 fL (82-100); MONOCYTES # (AUTO) 0.6 /CMM (0.1-1.30); MONOCYTES % (AUTO) 8.4 % (2.0-12.0); NEUTROPHILS # (AUTO) 4.9 /CMM (1.8-8.9); NEUTROPHILS % (AUTO) 69.3 % (43.0-81.0); PLATELET COUNT (AUTO) 333 /CMM (150-450); RED BLOOD CELL COUNT(AUTO) 3.71 MIL/uL (4.0-5.2); WHITE BLOOD COUNT (AUTO) 7.1 K/uL (4.3-11.0)
--- NOTE | 2019-04-04 06:30 | NUR ---
RN NOTES COLLECTED URINE TEST STAT PER SURGERY's REQUEST.
--- NOTE | 2019-04-04 06:35 | NUR ---
RN CLOSING NOTES NO SIGNIFICANT CHANGES IN Pt's CONDITION. Pt REMAINED STABLE DURING THE NIGHT. NO S/S OF ACUTE DISTRESS OR SOB NOTED. Pt HAS BEEN NPO [place]CE [place]. Pt IS SCHEDULED FOR SX TODAY FOR LEFT ANKLE HARDWARE REMOVAL. PER SURGERY Pt WAS MISSING A TEST & NEEDED A STAT URINE SAMPLE BEFORE SHE GOES INTO SX. WAS ABLE TO COLLECT URINE SAMPLE FROM Pt, & INFORMED LAB THAT URINE SAMPLE WAS IN THE FRIDGE. SAFETY MEASURES IN PLACE. WILL ENDORSE TO DAYSHIFT RN FOR Pt's MARISEL.
[2019-04-04 06:47] VITALS: BP 102/57
[2019-04-04] MEDS ORDERED: MIDAZOLAM HCL 2 MG/2ML VIAL ONE (07:07)
[2019-04-04] MEDS ORDERED: ANESTHESIA TRAY IN PYXIS 1 EA TRAY MC ONE (07:07)
[2019-04-04] MEDS ORDERED: FENTANYL PF 100MCG/2ML AMPUL ONE ×2 (07:07→09:31)
[2019-04-04 07:28] LABS: CALCIUM, SERUM 7.9 mg/dL (8.5-10.1); CREATININE 0.9 mg/dL (0.6-1.3); MAGNESIUM 1.9 mg/dL (1.8-2.4); POTASSIUM 4.1 mmol/L (3.5-5.1)
[2019-04-04] MEDS: LEVOTHYROXINE SODIUM 50 MCG TABLET PO SCH (07:30)
--- NOTE | 2019-04-04 07:55 | NUR ---
MS RN NOT IN THE ROOM, AT OR DOING SURGERY AT THIS TIME.
[2019-04-04] MEDS ORDERED: BACITRACIN 50000 UNITS/VIAL ONE (08:01)
[2019-04-04] MEDS ORDERED: SEVOFLURANE 250 ML BOTTLE IH ONE (08:19)
[2019-04-04] MEDS ORDERED: LIDOCAINE HCL/PF 1% 30 ML SDV ONE (08:28)
[2019-04-04] MEDS ORDERED: LIDOCAINE HCL/PF 2 % 5ML SDV 5 ML VIAL ONE (08:29)
[2019-04-04] MEDS: LACTOBACILLUS RHAMNOSUS GG 1 EACH CAP.SPRINK PO SCH ×2 (09:00→17:58)
[2019-04-04] MEDS: PANTOPRAZOLE 40 MG TABLET.DR PO SCH ×2 (09:00→21:35)
[2019-04-04 10:20] VITALS: BP 105/59
--- NOTE | 2019-04-04 11:00 | NUR ---
MS RN PATIENT CAME BACK FROM SURGERY, LEFT LOWER EXTREMITY W/ CAST CLEAN AND CRY, ELEVATED W/ PILLOWS, DENIES PAIN AT THIS TIME, WILL MONITOR PATIENT.
--- NOTE | 2019-04-04 13:00 | NUR ---
MS RN PATIENT HAD LUNCH, DUE MEDS GIVEN,TOLERATED WELL.
[2019-04-04] MEDS: DOCUSATE SODIUM 100 MG CAPSULE PO SCH ×2 (13:38→17:58)
[2019-04-04] MEDS: ASCORBIC ACID 500 MG TABLET PO SCH (13:39)
[2019-04-04] MEDS: MULTIVITAMINS,THERAGRAN 1 UDTAB TABLET PO SCH (13:39)
[2019-04-04] MEDS: CHOLECALCIFEROL 1,000 UNIT TABLET (VIT D3) PO SCH (13:39)
[2019-04-04] MEDS: FAMOTIDINE (20 MG) 20 MG TABLET PO SCH (13:39)
[2019-04-04 16:00] VITALS: BP 123/70
--- NOTE | 2019-04-04 16:00 | NUR ---
MS RN ON BED, NO DISTRESS NOTED, FAMILY T BEDSIDE.
[2019-04-04] MEDS: IV NS 0.9% 1,000 ML IV PRN (17:58)
[2019-04-04] MEDS: MORPHINE SULFATE INJ 2 MG/ML DISP.SYRIN IV PRN (18:12)
--- NOTE | 2019-04-04 18:36 | NUR ---
MS RN ON BED, FINISHED DINNER, NO COMPLAIN AT THIS TIME, PAIN MEDS GIVEN.
--- NOTE | 2019-04-04 19:10 | NUR ---
MS RN PM OPENING NOTE. BEDSIDE REPORT RECIEVED FROM ADRIEL JIANG. REVIEWED POC WITH PATIENT. QUESTIONS CONCERNS ADDRESSED. PATIENT IS IN BED WITH LEFT LEG ELEVATED ON TWO PILLOWS. DENIES ANY COMPLAINTS AT THIS TIME, REPORTS HER PAIN IS TOLERABLE. CALL LIGHT WITHIN REACH BED DOWN AND LOCKED.
[2019-04-04 19:55] VITALS: BP 111/59
[2019-04-04] MEDS: CEFEPIME 1 GM in IV D5W 50 ML IV SCH (21:35)
[2019-04-05] MEDS: VANCOMYCIN 1 GM in IV D5W 250 ML IV SCH ×2 (02:42→15:13)
--- NOTE | 2019-04-05 05:48 | NUR ---
MS RN PM CLOSING NOTE. PATIENT IS IN BED WITH LEFT LEG ELEVATED ON TWO PILLOWS. DENIES ANY COMPLAINTS AT THIS TIME, REPORTS HER PAIN IS STILL TOLERABLE THIS MORNING. CALL LIGHT WITHIN REACH BED DOWN AND LOCKED. PATIENT REQUESTING HELP TO GET WASHED UP AND GENICE MORTGAGE SALES MANAGER IN TO HELP PATIENT.
[2019-04-05] MEDS: LEVOTHYROXINE SODIUM 50 MCG TABLET PO SCH (06:18)
[2019-04-05 06:26] LABS: BASOPHILS # (AUTO) 0.1 /CMM (0.0-0.2); BASOPHILS % (AUTO) 0.9 % (0.0-2.0); EOSINOPHILS % (AUTO) 3.4 % (0.0-6.0); HEMATOCRIT 25 % (33-45); HEMOGLOBIN 8.3 g/dL (11.5-14.8); LYMPHOCYTES # (AUTO) 1.4 /CMM (0.8-4.8); LYMPHOCYTES % (AUTO) 24.2 % (20.0-44.0); MEAN CORPUSCULAR HGB CONC 33 g/dl (31.0-36.0); MEAN CORPUSCULAR VOLUME 79 fL (82-100); MONOCYTES # (AUTO) 0.5 /CMM (0.1-1.30); MONOCYTES % (AUTO) 8.8 % (2.0-12.0); NEUTROPHILS # (AUTO) 3.5 /CMM (1.8-8.9); NEUTROPHILS % (AUTO) 62.7 % (43.0-81.0); PLATELET COUNT (AUTO) 311 /CMM (150-450); RED BLOOD CELL COUNT(AUTO) 3.16 MIL/uL (4.0-5.2); WHITE BLOOD COUNT (AUTO) 5.6 K/uL (4.3-11.0)
[2019-04-05 06:37] LABS: CALCIUM, SERUM 7.7 mg/dL (8.5-10.1); CREATININE 0.8 mg/dL (0.6-1.3); POTASSIUM 4.2 mmol/L (3.5-5.1)
--- NOTE | 2019-04-05 07:55 | NUR ---
MS RN RECEIVED ON BED, AWAKE,ALERT,ORIENTED X4,NOT IN ANY FORM OF DISTRESS, RESPIRATIONS EVEN AND UNLABORED,NO SOB NOTED, LUNGS ARE CLEAR,ABDOMEN SOFT,POSITIVE BOWEL SOUNDS,S/P LEFT FOOT SURGERY W/ CAST DRY AND INTACT,DENIES PAIN AT THIS TIME, WILL MONITOR PATIENT'S CONDITION.
[2019-04-05 08:00] VITALS: BP 113/68
--- NOTE | 2019-04-05 08:30 | NUR ---
MS JIANG BREAKFAST SERVED,DUE MEDS GIVEN, TOLERATED WELL.
[2019-04-05] MEDS: CHOLECALCIFEROL 1,000 UNIT TABLET (VIT D3) PO SCH (09:23)
[2019-04-05] MEDS: LACTOBACILLUS RHAMNOSUS GG 1 EACH CAP.SPRINK PO SCH ×2 (09:23→16:49)
[2019-04-05] MEDS: PANTOPRAZOLE 40 MG TABLET.DR PO SCH (09:23)
[2019-04-05] MEDS: ASCORBIC ACID 500 MG TABLET PO SCH (09:23)
[2019-04-05] MEDS: MULTIVITAMINS,THERAGRAN 1 UDTAB TABLET PO SCH (09:23)
[2019-04-05] MEDS: FAMOTIDINE (20 MG) 20 MG TABLET PO SCH (09:23)
[2019-04-05] MEDS: DOCUSATE SODIUM 100 MG CAPSULE PO SCH ×2 (09:23→16:48)
[2019-04-05] MEDS: CEFEPIME 1 GM in IV D5W 50 ML IV SCH (09:23)
[2019-04-05] MEDS ORDERED: VANC1FRO2 IV (11:16)
[2019-04-05] MEDS ORDERED: CEFE1PIG3 IV (11:16)
[2019-04-05] MEDS ORDERED: RXVAN XX (11:16)
--- NOTE | 2019-04-05 12:30 | NUR ---
MS RN WAS SEEN BY SALVATORE KENT W/ ORDER TO BE DISCHARGE TODAY.
--- NOTE | 2019-04-05 17:20 | NUR ---
MS RN CANNOT DO PICTURES AT LEFT FOOT DUE TO FOOT COVERED W/ CAST.
--- NOTE | 2019-04-05 17:30 | NUR ---
MS RN PICC LINE WAS INSERTED AND PATIENT WENT HOME ACCOMPANIED BY FAMILY MEMBER. NO DISTRESS NOTED.
== END 2019-04-05 17:15 | disposition home health service (06) | DRG 504 ==
LOC: ER 10:20 → MED 13:42
PROVIDERS: ADMIT Nurse Practitioner Acute Care; ATTEND Nurse Practitioner Acute Care
PROC: 0SPJ04Z Removal of Internal Fixation Device from Left Tarsal Joint, Open Approach (ICD-10-PCS; principal; 2019-04-04)
DX: T84.59XA Infection and inflammatory reaction due to other internal joint prosthesis, initial encounter (principal); L02.612 Cutaneous abscess of left foot; L03.116 Cellulitis of left lower limb; M86.9 Osteomyelitis, unspecified; E66.9 Obesity, unspecified; E03.9 Hypothyroidism, unspecified; I10 Essential (primary) hypertension; F41.9 Anxiety disorder, unspecified; E11.42 Type 2 diabetes mellitus with diabetic polyneuropathy; E11.610 Type 2 diabetes mellitus with diabetic neuropathic arthropathy; D50.9 Iron deficiency anemia, unspecified; E11.69 Type 2 diabetes mellitus with other specified complication; E78.5 Hyperlipidemia, unspecified; Z82.3 Family history of stroke; Z80.3 Family history of malignant neoplasm of breast; Z82.49 Family history of ischemic heart disease and other diseases of the circulatory system; Z98.84 Bariatric surgery status; Z83.3 Family history of diabetes mellitus; Z79.899 Other long term (current) drug therapy; Y83.9 Surgical procedure, unspecified as the cause of abnormal reaction of the patient, or of later complication, without mention of misadventure at the time of the procedure; Y92.009 Unspecified place in unspecified non-institutional (private) residence as the place of occurrence of the external cause
CPT/HCPCS: 36415; 73610-TC; 80048-TC; 80061-TC; 80202-TC; 82728-TC; 82962-TC; 83540-TC; 83735-TC; 84100-TC; 84443-TC; 84703-TC; 85025-TC; 85027-TC; 87040-TC; 87070-TC; 87075-TC; 87081-TC; 87102-TC; 87116; 87206; 88305-TC; 88311-TC; 88312-TC; A4217; A6402; A6403; C1751; G0378; J0692; J2250; J2270; J2405; J2543; J2704; J3010; J3370; J3475; J3490; J7030; J7060

== ENCOUNTER 2019-04-08 07:44 | Emergency (ER) | payer MEDICARE, MEDICAID ==
[~2019-04-08] VITALS: Ht 165.1 cm; Wt 93.0 kg
[~2019-04-08 07:44] MED LIST changes: +ASCO500T9 PO; +CEFE1PIG3 IV; +CHOL100044 PO; +ERGO500040 PO; +MULT-24 PO; +RANI300T4 PO; +RXVAN XX; +VANC1FRO2 IV
[2019-04-08 07:50] VITALS: BP 121/78
--- NOTE | 2019-04-08 11:26 | NUR ---
CALLED [facility] [phone] RE: CURRENT IV VANCOMYCIN DOSE. SPOKE WITH NA AND TRNSFERRED TO FIELD RESEARCH ASSOCIATE. STATED "VANCOMYCIN 1 GRAM Q12HRS AND P&T DUE ON WEDNESDAY". ER MADE AWARE. CN MADE AWARE.
--- NOTE | 2019-04-08 11:28 | NUR ---
PHARMACY[facility] MADE AWARE OF CURRENT IV VANCO DOSE. SUZANNE PICC LINE NURSE ETA 1HR.
[2019-04-08] MEDS ORDERED: VANCOMYCIN HCL 1.25 GM in IV D5W 260 ML IV ONE (11:30)
[2019-04-08] MEDS ORDERED: VANCOMYCIN 1 GM in IV D5W 250 ML IV ONE (11:30)
[2019-04-08] MEDS ORDERED: CEFEPIME 1 GM in IV D5W 50 ML IV ONE (11:30)
--- NOTE | 2019-04-08 12:30 | NUR ---
SIGNED PICC LINE CONSENT
--- NOTE | 2019-04-08 12:36 | NUR ---
PICC LINE NURSE AT BEDSIDE
--- NOTE | 2019-04-08 13:20 | NUR ---
IV removed at [facility]. Catheter intact and site benign. Pressure and 4x4 applied to site. No bleeding noted. Midline at JENNIFER, no bleeding noted. Patient discharged to home in stable condition. Written and verbal after care instructions given. Patient verbalizes understanding of instruction.
== END 2019-04-08 13:23 | disposition home or self-care (01) ==
LOC: ER 07:47
DX: Z45.2 Encounter for adjustment and management of vascular access device (principal); I10 Essential (primary) hypertension; E11.9 Type 2 diabetes mellitus without complications; E03.9 Hypothyroidism, unspecified; Z98.890 Other specified postprocedural states
CPT/HCPCS: 36569; 96365; 96367; 99285; C1751; J0692; J3370; J7060 ×2

== ENCOUNTER 2019-04-14 08:40 | Outpatient (CLI) | payer MEDICARE, MEDICAID | END 2019-04-14 23:59 | disposition home or self-care (01) | LOC: WOU 08:40 | PROVIDERS: ATTEND Podiatrist Foot & Ankle Surgery | DX: Z47.89 Encounter for other orthopedic aftercare (principal); E11.610 Type 2 diabetes mellitus with diabetic neuropathic arthropathy; Z98.1 Arthrodesis status; M21.70 Unequal limb length (acquired), unspecified site; E11.42 Type 2 diabetes mellitus with diabetic polyneuropathy; R60.0 Localized edema; Z98.84 Bariatric surgery status | CPT/HCPCS: G0463 ==

== ENCOUNTER 2019-04-18 10:50 | Outpatient (CLI) | payer MEDICARE, MEDICAID | END 2019-04-18 23:59 | disposition home or self-care (01) | LOC: WOU 10:50 | PROVIDERS: ATTEND Podiatrist Foot & Ankle Surgery | DX: Z47.89 Encounter for other orthopedic aftercare (principal); T81.89XD Other complications of procedures, not elsewhere classified, subsequent encounter; E11.610 Type 2 diabetes mellitus with diabetic neuropathic arthropathy; Z98.1 Arthrodesis status; E11.42 Type 2 diabetes mellitus with diabetic polyneuropathy; R60.0 Localized edema; E66.01 Morbid (severe) obesity due to excess calories; Z68.30 Body mass index [BMI] 30.0-30.9, adult; Z98.84 Bariatric surgery status | CPT/HCPCS: G0463 ==

== ENCOUNTER 2019-05-05 09:25 | Outpatient (CLI) | payer MEDICARE, MEDICAID | END 2019-05-05 23:59 | disposition home or self-care (01) | LOC: WOU 09:25 | PROVIDERS: ATTEND Podiatrist Foot & Ankle Surgery | DX: M96.0 Pseudarthrosis after fusion or arthrodesis (principal); T86.838 Other complications of bone graft; E11.42 Type 2 diabetes mellitus with diabetic polyneuropathy; E11.610 Type 2 diabetes mellitus with diabetic neuropathic arthropathy | CPT/HCPCS: G0463 ==

== ENCOUNTER 2019-05-16 08:00 | Outpatient (CLI) | payer MEDICARE, MEDICAID | END 2019-05-16 23:59 | disposition home health service (06) | LOC: WOU 08:00 | PROVIDERS: ATTEND Podiatrist Foot & Ankle Surgery | DX: E11.610 Type 2 diabetes mellitus with diabetic neuropathic arthropathy (principal); S82.892K Other fracture of left lower leg, subsequent encounter for closed fracture with nonunion; X58.XXXD Exposure to other specified factors, subsequent encounter; R60.0 Localized edema; E11.42 Type 2 diabetes mellitus with diabetic polyneuropathy; Z98.1 Arthrodesis status ==

== ENCOUNTER 2019-06-13 08:00 | Outpatient (CLI) | payer MEDICARE, MEDICAID ==
[~2019-06-13 08:00] MED LIST changes: +OMEP40CA13 PO; -OMEP40CA37 PO
== END 2019-06-13 23:59 | disposition home health service (06) ==
LOC: WOU 08:00
PROVIDERS: ATTEND Podiatrist Foot & Ankle Surgery
DX: E11.610 Type 2 diabetes mellitus with diabetic neuropathic arthropathy (principal); M96.0 Pseudarthrosis after fusion or arthrodesis; E11.42 Type 2 diabetes mellitus with diabetic polyneuropathy; R60.0 Localized edema

== ENCOUNTER 2019-07-04 08:00 | Outpatient (CLI) | payer MEDICARE, MEDICAID | END 2019-07-04 23:59 | disposition home health service (06) | LOC: WOU 08:00 | PROVIDERS: ATTEND Podiatrist Foot & Ankle Surgery | DX: E11.610 Type 2 diabetes mellitus with diabetic neuropathic arthropathy (principal); E11.42 Type 2 diabetes mellitus with diabetic polyneuropathy; M25.372 Other instability, left ankle; M96.0 Pseudarthrosis after fusion or arthrodesis; M21.70 Unequal limb length (acquired), unspecified site; Z86.31 Personal history of diabetic foot ulcer ==

== ENCOUNTER 2019-07-28 08:05 | Outpatient (CLI) | payer MEDICARE, MEDICAID | END 2019-07-28 23:59 | disposition home health service (06) | LOC: WOU 08:05 | PROVIDERS: ATTEND Podiatrist Foot & Ankle Surgery | PROC: 0S9G3ZZ Drainage of Left Ankle Joint, Percutaneous Approach (ICD-10-PCS; principal; 2019-07-28) | DX: E11.610 Type 2 diabetes mellitus with diabetic neuropathic arthropathy (principal); E11.42 Type 2 diabetes mellitus with diabetic polyneuropathy; M79.81 Nontraumatic hematoma of soft tissue; M96.0 Pseudarthrosis after fusion or arthrodesis; M25.372 Other instability, left ankle; B35.1 Tinea unguium | CPT/HCPCS: 87070-TC; 87075-TC ==

== ENCOUNTER 2019-08-11 08:10 | Outpatient (CLI) | payer MEDICARE, MEDICAID | END 2019-08-11 23:59 | disposition home or self-care (01) | LOC: WOU 08:10 | PROVIDERS: ATTEND Podiatrist Foot & Ankle Surgery | DX: E11.610 Type 2 diabetes mellitus with diabetic neuropathic arthropathy (principal); M84.472K Pathological fracture, left ankle, subsequent encounter for fracture with nonunion; E11.42 Type 2 diabetes mellitus with diabetic polyneuropathy; R60.0 Localized edema ==

== ENCOUNTER 2019-09-12 07:52 | Outpatient (CLI) | payer MEDICARE, MEDICAID | END 2019-09-12 23:59 | disposition home or self-care (01) | LOC: RAD 07:52 | PROVIDERS: ATTEND Podiatrist Foot & Ankle Surgery | DX: M81.8 Other osteoporosis without current pathological fracture (principal); A52.16 Charcot's arthropathy (tabetic) | CPT/HCPCS: 73600-TC; 73620-TC ==

== ENCOUNTER 2019-09-12 08:40 | Outpatient (CLI) | payer MEDICARE, MEDICAID | END 2019-09-12 23:59 | disposition home health service (06) | LOC: WOU 08:40 | PROVIDERS: ATTEND Podiatrist Foot & Ankle Surgery | DX: E11.610 Type 2 diabetes mellitus with diabetic neuropathic arthropathy (principal); M96.0 Pseudarthrosis after fusion or arthrodesis; M79.81 Nontraumatic hematoma of soft tissue; M25.372 Other instability, left ankle; E11.42 Type 2 diabetes mellitus with diabetic polyneuropathy | CPT/HCPCS: 87070-TC; 87075-TC; 87102-TC ==

== ENCOUNTER 2019-10-03 08:00 | Outpatient (CLI) | payer MEDICARE, MEDICAID | END 2019-10-03 23:59 | disposition home health service (06) | LOC: WOU 08:00 | PROVIDERS: ATTEND Podiatrist Foot & Ankle Surgery | DX: M79.81 Nontraumatic hematoma of soft tissue (principal); E11.610 Type 2 diabetes mellitus with diabetic neuropathic arthropathy; E11.42 Type 2 diabetes mellitus with diabetic polyneuropathy; M96.0 Pseudarthrosis after fusion or arthrodesis; M25.372 Other instability, left ankle; R60.0 Localized edema | CPT/HCPCS: 36415; 84155-TC; 88112-TC; 88305-TC; 88312-TC; 89060-TC ==

== ENCOUNTER 2019-10-31 08:00 | Outpatient (CLI) | payer MEDICARE, MEDICAID | END 2019-10-31 23:59 | disposition home health service (06) | LOC: WOU 08:00 | PROVIDERS: ATTEND Podiatrist Foot & Ankle Surgery | DX: E11.610 Type 2 diabetes mellitus with diabetic neuropathic arthropathy (principal); E11.42 Type 2 diabetes mellitus with diabetic polyneuropathy; R60.0 Localized edema; M25.372 Other instability, left ankle; M96.0 Pseudarthrosis after fusion or arthrodesis; Z79.899 Other long term (current) drug therapy ==

== ENCOUNTER 2019-11-10 08:00 | Outpatient (CLI) | payer MEDICARE, MEDICAID | END 2019-11-10 23:59 | disposition home health service (06) | LOC: WOU 08:00 | PROVIDERS: ATTEND Podiatrist Foot & Ankle Surgery | DX: E11.610 Type 2 diabetes mellitus with diabetic neuropathic arthropathy (principal); R60.0 Localized edema; E11.42 Type 2 diabetes mellitus with diabetic polyneuropathy; M25.372 Other instability, left ankle; M96.0 Pseudarthrosis after fusion or arthrodesis ==

== ENCOUNTER 2019-11-24 08:00 | Outpatient (CLI) | payer MEDICARE, MEDICAID ==
[~2019-11-24 08:00] MED LIST changes: +ASCO-352 PO; -ASCO500T9 PO
== END 2019-11-24 23:59 | disposition home health service (06) ==
LOC: WOU 08:00
PROVIDERS: ATTEND Podiatrist Foot & Ankle Surgery
DX: E11.610 Type 2 diabetes mellitus with diabetic neuropathic arthropathy (principal); E11.42 Type 2 diabetes mellitus with diabetic polyneuropathy; M96.0 Pseudarthrosis after fusion or arthrodesis; S90.02XA Contusion of left ankle, initial encounter; X58.XXXA Exposure to other specified factors, initial encounter; Y92.89 Other specified places as the place of occurrence of the external cause; M79.81 Nontraumatic hematoma of soft tissue; M25.372 Other instability, left ankle; Z79.899 Other long term (current) drug therapy

== ENCOUNTER 2019-12-08 08:05 | Outpatient (CLI) | payer MEDICARE, MEDICAID | END 2019-12-08 23:59 | disposition home health service (06) | LOC: WOU 08:05 | PROVIDERS: ATTEND Podiatrist Foot & Ankle Surgery | DX: E11.610 Type 2 diabetes mellitus with diabetic neuropathic arthropathy (principal); E11.42 Type 2 diabetes mellitus with diabetic polyneuropathy; M25.372 Other instability, left ankle; M96.0 Pseudarthrosis after fusion or arthrodesis; R60.0 Localized edema; Z79.899 Other long term (current) drug therapy ==

== ENCOUNTER 2019-12-22 08:00 | Outpatient (CLI) | payer MEDICARE, MEDICAID | END 2019-12-22 23:59 | disposition home health service (06) | LOC: WOU 08:00 | PROVIDERS: ATTEND Podiatrist Foot & Ankle Surgery | DX: E11.610 Type 2 diabetes mellitus with diabetic neuropathic arthropathy (principal); E11.42 Type 2 diabetes mellitus with diabetic polyneuropathy; M96.0 Pseudarthrosis after fusion or arthrodesis; M25.375 Other instability, left foot; Z79.899 Other long term (current) drug therapy ==

== ENCOUNTER 2020-01-05 08:00 | Outpatient (CLI) | payer MEDICARE, MEDICAID | END 2020-01-05 23:59 | disposition home health service (06) | LOC: WOU 08:00 | PROVIDERS: ATTEND Podiatrist Foot & Ankle Surgery | DX: E11.610 Type 2 diabetes mellitus with diabetic neuropathic arthropathy (principal); E11.42 Type 2 diabetes mellitus with diabetic polyneuropathy; M96.0 Pseudarthrosis after fusion or arthrodesis; M25.372 Other instability, left ankle; R60.0 Localized edema ==

== ENCOUNTER 2020-01-19 08:00 | Outpatient (CLI) | payer MEDICARE, MEDICAID | END 2020-01-19 23:59 | disposition home health service (06) | LOC: WOU 08:00 | PROVIDERS: ATTEND Podiatrist Foot & Ankle Surgery | DX: E11.610 Type 2 diabetes mellitus with diabetic neuropathic arthropathy (principal); E11.42 Type 2 diabetes mellitus with diabetic polyneuropathy; M25.372 Other instability, left ankle; R60.0 Localized edema; M96.0 Pseudarthrosis after fusion or arthrodesis ==

== ENCOUNTER 2020-02-02 08:00 | Outpatient (CLI) | payer MEDICARE, MEDICAID | END 2020-02-02 23:59 | disposition home health service (06) | LOC: WOU 08:00 | PROVIDERS: ATTEND Podiatrist Foot & Ankle Surgery | DX: E11.610 Type 2 diabetes mellitus with diabetic neuropathic arthropathy (principal); E11.42 Type 2 diabetes mellitus with diabetic polyneuropathy; M96.0 Pseudarthrosis after fusion or arthrodesis; M25.372 Other instability, left ankle; R60.0 Localized edema | CPT/HCPCS: G0463 ==

== ENCOUNTER 2020-02-16 08:15 | Outpatient (CLI) | payer MEDICARE, MEDICAID | END 2020-02-16 23:59 | disposition home health service (06) | LOC: WOU 08:15 | PROVIDERS: ATTEND Podiatrist Foot & Ankle Surgery | DX: E11.610 Type 2 diabetes mellitus with diabetic neuropathic arthropathy (principal); E11.42 Type 2 diabetes mellitus with diabetic polyneuropathy; M79.81 Nontraumatic hematoma of soft tissue; M25.372 Other instability, left ankle; R60.0 Localized edema; M96.0 Pseudarthrosis after fusion or arthrodesis; Z79.899 Other long term (current) drug therapy | CPT/HCPCS: 87070-TC ==

== ENCOUNTER 2020-03-01 08:00 | Outpatient (CLI) | payer MEDICARE, MEDICAID | END 2020-03-01 23:59 | disposition home health service (06) | LOC: WOU 08:00 | PROVIDERS: ATTEND Podiatrist Foot & Ankle Surgery | DX: E11.610 Type 2 diabetes mellitus with diabetic neuropathic arthropathy (principal); M96.0 Pseudarthrosis after fusion or arthrodesis; M25.372 Other instability, left ankle; E11.42 Type 2 diabetes mellitus with diabetic polyneuropathy; R60.0 Localized edema ==

== ENCOUNTER 2020-04-05 08:00 | Outpatient (CLI) | payer MEDICARE, MEDICAID | END 2020-04-05 23:59 | disposition home health service (06) | LOC: WOU 08:00 | PROVIDERS: ATTEND Podiatrist Foot & Ankle Surgery | DX: E11.610 Type 2 diabetes mellitus with diabetic neuropathic arthropathy (principal); E11.42 Type 2 diabetes mellitus with diabetic polyneuropathy; M79.81 Nontraumatic hematoma of soft tissue; M96.0 Pseudarthrosis after fusion or arthrodesis; M25.372 Other instability, left ankle; R60.0 Localized edema | CPT/HCPCS: 87070-TC ==

== ENCOUNTER 2020-04-19 08:00 | Outpatient (CLI) | payer MEDICARE, MEDICAID ==
[2020-04-19] MEDS ORDERED: TRIAMCINOLONE ACETONIDE SUSP 40 MG/ML 1 ML IM ONE (09:00)
[2020-04-19] MEDS ORDERED: LIDOCAINE HCL/PF 1% 30 ML SDV IJ ONE (09:00)
== END 2020-04-19 23:59 | disposition home health service (06) ==
LOC: WOU 08:00
PROVIDERS: ATTEND Podiatrist Foot & Ankle Surgery
DX: E11.622 Type 2 diabetes mellitus with other skin ulcer (principal); L97.328 Non-pressure chronic ulcer of left ankle with other specified severity; M76.821 Posterior tibial tendinitis, right leg; E11.610 Type 2 diabetes mellitus with diabetic neuropathic arthropathy; M25.571 Pain in right ankle and joints of right foot; R60.0 Localized edema; M25.372 Other instability, left ankle; M96.0 Pseudarthrosis after fusion or arthrodesis
CPT/HCPCS: 20550; 29445; A6209; J3490

== ENCOUNTER 2020-04-26 08:00 | Outpatient (CLI) | payer MEDICARE, MEDICAID | END 2020-04-26 23:59 | disposition home health service (06) | LOC: WOU 08:00 | PROVIDERS: ATTEND Podiatrist Foot & Ankle Surgery | DX: E11.610 Type 2 diabetes mellitus with diabetic neuropathic arthropathy (principal); E11.42 Type 2 diabetes mellitus with diabetic polyneuropathy; M96.0 Pseudarthrosis after fusion or arthrodesis; M25.372 Other instability, left ankle; R60.0 Localized edema; M76.821 Posterior tibial tendinitis, right leg; M25.571 Pain in right ankle and joints of right foot ==

== ENCOUNTER 2020-04-30 12:45 | Outpatient (CLI) | payer MEDICARE, MEDICAID | END 2020-04-30 23:59 | disposition home or self-care (01) | LOC: MRI 12:45 | PROVIDERS: ATTEND Podiatrist Foot & Ankle Surgery | DX: M77.31 Calcaneal spur, right foot (principal); M21.41 Flat foot [pes planus] (acquired), right foot; A52.16 Charcot's arthropathy (tabetic); R60.0 Localized edema | CPT/HCPCS: 73718-TC; 73721-TC ==

== ENCOUNTER 2020-05-17 08:00 | Outpatient (CLI) | payer MEDICARE, MEDICAID | END 2020-05-17 23:59 | disposition home health service (06) | LOC: WOU 08:00 | PROVIDERS: ATTEND Podiatrist Foot & Ankle Surgery | DX: E11.610 Type 2 diabetes mellitus with diabetic neuropathic arthropathy (principal); E11.42 Type 2 diabetes mellitus with diabetic polyneuropathy; M25.372 Other instability, left ankle; M79.81 Nontraumatic hematoma of soft tissue; M76.821 Posterior tibial tendinitis, right leg; M96.0 Pseudarthrosis after fusion or arthrodesis; R60.0 Localized edema; Z87.891 Personal history of nicotine dependence | CPT/HCPCS: 87070-TC ==

== ENCOUNTER 2020-06-14 08:00 | Outpatient (CLI) | payer MEDICARE, MEDICAID | END 2020-06-14 23:59 | disposition home health service (06) | LOC: WOU 08:00 | PROVIDERS: ATTEND Podiatrist Foot & Ankle Surgery | DX: E11.610 Type 2 diabetes mellitus with diabetic neuropathic arthropathy (principal); E11.42 Type 2 diabetes mellitus with diabetic polyneuropathy; M25.372 Other instability, left ankle; M96.0 Pseudarthrosis after fusion or arthrodesis; R60.0 Localized edema; M25.571 Pain in right ankle and joints of right foot; M76.821 Posterior tibial tendinitis, right leg ==

== ENCOUNTER 2020-06-28 08:00 | Outpatient (CLI) | payer MEDICARE, MEDICAID ==
[2020-06-28] MEDS ORDERED: BACI/NEOM/POLY B OINT PKT 1 UDPKT PACKET ONE (08:45)
== END 2020-06-28 23:59 | disposition home health service (06) ==
LOC: WOU 08:00
PROVIDERS: ATTEND Podiatrist Foot & Ankle Surgery
DX: S90.412A Abrasion, left great toe, initial encounter (principal); X58.XXXA Exposure to other specified factors, initial encounter; Y92.89 Other specified places as the place of occurrence of the external cause; E11.610 Type 2 diabetes mellitus with diabetic neuropathic arthropathy; E11.42 Type 2 diabetes mellitus with diabetic polyneuropathy; M96.0 Pseudarthrosis after fusion or arthrodesis; M76.821 Posterior tibial tendinitis, right leg; M25.372 Other instability, left ankle; R60.0 Localized edema

== ENCOUNTER 2020-07-12 08:00 | Outpatient (CLI) | payer MEDICARE, MEDICAID | END 2020-07-12 23:59 | disposition home health service (06) | LOC: WOU 08:00 | PROVIDERS: ATTEND Podiatrist Foot & Ankle Surgery | DX: E11.610 Type 2 diabetes mellitus with diabetic neuropathic arthropathy (principal); M79.81 Nontraumatic hematoma of soft tissue; E11.42 Type 2 diabetes mellitus with diabetic polyneuropathy; M96.0 Pseudarthrosis after fusion or arthrodesis; M76.821 Posterior tibial tendinitis, right leg; S90.412D Abrasion, left great toe, subsequent encounter; X58.XXXD Exposure to other specified factors, subsequent encounter; R60.0 Localized edema; M25.571 Pain in right ankle and joints of right foot | CPT/HCPCS: 87070-TC; 87075-TC ==

== ENCOUNTER 2020-08-30 08:00 | Outpatient (CLI) | payer MEDICARE, MEDICAID ==
[2020-08-30] MEDS ORDERED: UREA 10% -AHA 4% CREAM 57 GM TUBE ONE (08:48)
== END 2020-08-30 23:59 | disposition home or self-care (01) ==
LOC: WOU 08:00
PROVIDERS: ATTEND Podiatrist Foot & Ankle Surgery
DX: E11.610 Type 2 diabetes mellitus with diabetic neuropathic arthropathy (principal); E11.42 Type 2 diabetes mellitus with diabetic polyneuropathy; M25.372 Other instability, left ankle; M96.0 Pseudarthrosis after fusion or arthrodesis; R60.0 Localized edema

== ENCOUNTER 2020-09-27 08:00 | Outpatient (CLI) | payer MEDICARE, MEDICAID ==
[2020-09-27] MEDS ORDERED: UREA 10% -AHA 4% CREAM 57 GM TUBE ONE (08:52)
== END 2020-09-27 23:59 | disposition home or self-care (01) ==
LOC: WOU 08:00
PROVIDERS: ATTEND Podiatrist Foot & Ankle Surgery
DX: E11.610 Type 2 diabetes mellitus with diabetic neuropathic arthropathy (principal); E11.42 Type 2 diabetes mellitus with diabetic polyneuropathy; M96.0 Pseudarthrosis after fusion or arthrodesis; Z86.31 Personal history of diabetic foot ulcer; R60.0 Localized edema; M25.571 Pain in right ankle and joints of right foot

== ENCOUNTER 2020-11-22 08:00 | Outpatient (CLI) | payer MEDICARE, MEDICAID | END 2020-11-22 23:59 | disposition home or self-care (01) | LOC: WOU 08:00 | PROVIDERS: ATTEND Podiatrist Foot & Ankle Surgery | DX: E11.610 Type 2 diabetes mellitus with diabetic neuropathic arthropathy (principal); E11.42 Type 2 diabetes mellitus with diabetic polyneuropathy; M25.372 Other instability, left ankle; M96.0 Pseudarthrosis after fusion or arthrodesis; R60.0 Localized edema; M25.521 Pain in right elbow; Z86.31 Personal history of diabetic foot ulcer ==

== ENCOUNTER 2020-12-27 08:00 | Outpatient (CLI) | payer MEDICARE, MEDICAID ==
[2020-12-27] MEDS ORDERED: UREA 10% -AHA 4% CREAM 57 GM TUBE ONE (08:27)
== END 2020-12-27 23:59 | disposition home or self-care (01) ==
LOC: WOU 08:00
PROVIDERS: ATTEND Podiatrist Foot & Ankle Surgery
DX: E11.610 Type 2 diabetes mellitus with diabetic neuropathic arthropathy (principal); E11.42 Type 2 diabetes mellitus with diabetic polyneuropathy; M96.0 Pseudarthrosis after fusion or arthrodesis; M76.821 Posterior tibial tendinitis, right leg; R60.0 Localized edema; B35.1 Tinea unguium; M25.571 Pain in right ankle and joints of right foot; Z86.31 Personal history of diabetic foot ulcer

== ENCOUNTER 2021-01-24 14:45 | Emergency (ER) | payer MEDICARE, MEDICAID ==
[~2021-01-24] VITALS: Ht 167.6 cm; Wt 90.7 kg
--- NOTE | 2021-01-24 15:05 | NUR ---
"had gallbladder surg 01/06 was doing well but 2days ago started having pain in abdomen,bloated and nauseous took pain meds NOT better" Patient a/ox4, breathing even and unlabored, no sob noted. Needs attended.
[2021-01-24 15:52] LABS: BASOPHILS # (AUTO) 0.1 /CMM (0.0-0.2); BASOPHILS % (AUTO) 1.2 % (0.0-2.0); EOSINOPHILS % (AUTO) 4.6 % (0.0-6.0); HEMATOCRIT 32 % (33-45); HEMOGLOBIN 10.8 g/dL (11.5-14.8); LYMPHOCYTES # (AUTO) 1.9 /CMM (0.8-4.8); LYMPHOCYTES % (AUTO) 27.4 % (20.0-44.0); MEAN CORPUSCULAR HGB CONC 33 g/dl (31.0-36.0); MEAN CORPUSCULAR VOLUME 84 fL (82-100); MONOCYTES # (AUTO) 0.4 /CMM (0.1-1.30); MONOCYTES % (AUTO) 5.9 % (2.0-12.0); NEUTROPHILS # (AUTO) 4.2 /CMM (1.8-8.9); NEUTROPHILS % (AUTO) 60.9 % (43.0-81.0); PLATELET COUNT (AUTO) 314 /CMM (150-450); RED BLOOD CELL COUNT(AUTO) 3.85 MIL/uL (4.0-5.2); WHITE BLOOD COUNT (AUTO) 6.9 K/uL (4.3-11.0)
[2021-01-24] MEDS ORDERED: ONDANSETRON HCL/PF 4 MG/2 ML VIAL ONE (15:56)
[2021-01-24 15:58] LABS: CALCIUM, SERUM 8.3 mg/dL (8.5-10.1); CREATININE 0.8 mg/dL (0.6-1.3); POTASSIUM 4.4 mmol/L (3.5-5.1)
[2021-01-24 16:04] LABS: ALBUMIN 3.6 g/dL (3.4-5.0); BILIRUBIN,DIRECT 0.1 mg/dL (0.0-0.2); BILIRUBIN,TOTAL 0.2 mg/dL (0.2-1.0); TOTAL PROTEIN, SERUM 7.3 g/dL (6.4-8.2)
[2021-01-24] MEDS: ONDANSETRON HCL/PF - ER 4 MG/2 ML VIAL IV ONE (16:07)
[2021-01-24] MEDS ORDERED: IOHEXOL-300 100 ML VIAL IV ONE (16:19)
[2021-01-24] MEDS ORDERED: CT SWABBABLE VALVE TRANS SET 1 EA INFUS.SET MC ONE (16:19)
[2021-01-24] MEDS ORDERED: IV NS 0.9% 250 ML IV ONE (16:20)
[2021-01-24 16:45] LABS: BILIRUBIN,URINE Negative (NEGATIVE); COLOR,URINE YELLOW (YELLOW); LEUKOCYTE ESTERASE ,URINE Negative (NEGATIVE); NITRITE, URINE Negative (NEGATIVE); PH,URINE 5.5 (5.0-8.0); PROTEIN,URINE Negative (NEGATIVE); UGLUCOSE Negative (NEGATIVE); UROBILINOGEN,URINE 0.2 EU/dL (0.2)
[2021-01-24] MEDS ORDERED: ICOS1CAP PO (17:08)
--- NOTE | 2021-01-24 17:51 | NUR ---
CALLED DR. RODRIGUEZ LEFT MSG.
--- NOTE | 2021-01-24 18:23 | NUR ---
RAINE SANTOS [phone] JAIME.
--- NOTE | 2021-01-24 18:42 | NUR ---
PATIENT'S PAIN IMPROVED. PATIENT A/OX4, BREATHING EVEN AND UNLABORED, NO SOB NOTED. AMBULATORY WITH STEADY GAIT. IV removed. Catheter intact and site benign. Pressure and 4x4 applied to site. No bleeding noted.Patient discharged to home in stable condition. Written and verbal after care instructions given. Patient verbalizes understanding of instruction.
[2021-01-24 18:43] VITALS: BP 122/62
== END 2021-01-24 18:44 | disposition home or self-care (01) ==
LOC: ER 14:58
DX: R10.11 Right upper quadrant pain (principal); Z90.49 Acquired absence of other specified parts of digestive tract; I10 Essential (primary) hypertension; E11.9 Type 2 diabetes mellitus without complications; G62.9 Polyneuropathy, unspecified; E03.9 Hypothyroidism, unspecified; Z98.890 Other specified postprocedural states; Z79.899 Other long term (current) drug therapy
CPT/HCPCS: 36415; 74177; 76705; 80048; 80076; 81003; 83605; 83690; 85025; 96374; 99285; J2405 ×2; J7050; Q9967

== ENCOUNTER 2021-01-31 08:00 | Outpatient (CLI) | payer MEDICARE, MEDICAID ==
[~2021-01-31 08:00] MED LIST changes: -CEFE1PIG3 IV; +ICOS1CAP PO; -OMEP40CA13 PO; +OMEP40CA21 PO; -RANI300T4 PO; -RXVAN XX; -VANC1FRO2 IV
== END 2021-01-31 23:59 | disposition home or self-care (01) ==
LOC: WOU 08:00
PROVIDERS: ATTEND Podiatrist Foot & Ankle Surgery
DX: E11.610 Type 2 diabetes mellitus with diabetic neuropathic arthropathy (principal); E11.42 Type 2 diabetes mellitus with diabetic polyneuropathy; M25.372 Other instability, left ankle; M96.0 Pseudarthrosis after fusion or arthrodesis; M76.821 Posterior tibial tendinitis, right leg; R60.0 Localized edema; M25.571 Pain in right ankle and joints of right foot; Z86.31 Personal history of diabetic foot ulcer

== ENCOUNTER 2021-02-28 08:05 | Outpatient (CLI) | payer MEDICARE, MEDICAID | END 2021-02-28 23:59 | disposition home or self-care (01) | LOC: WOU 08:05 | PROVIDERS: ATTEND Podiatrist Foot & Ankle Surgery | DX: E11.610 Type 2 diabetes mellitus with diabetic neuropathic arthropathy (principal); E11.42 Type 2 diabetes mellitus with diabetic polyneuropathy; M96.0 Pseudarthrosis after fusion or arthrodesis; M76.821 Posterior tibial tendinitis, right leg; M25.571 Pain in right ankle and joints of right foot; R60.0 Localized edema ==

== ENCOUNTER 2021-03-28 08:15 | Outpatient (CLI) | payer MEDICARE, OTHER | END 2021-03-28 23:59 | disposition home or self-care (01) | LOC: WOU 08:15 | PROVIDERS: ATTEND Podiatrist Foot & Ankle Surgery | DX: M79.81 Nontraumatic hematoma of soft tissue (principal); E11.610 Type 2 diabetes mellitus with diabetic neuropathic arthropathy; E11.42 Type 2 diabetes mellitus with diabetic polyneuropathy; M96.0 Pseudarthrosis after fusion or arthrodesis; R60.0 Localized edema; M76.821 Posterior tibial tendinitis, right leg; Z86.31 Personal history of diabetic foot ulcer ==

== ENCOUNTER 2021-05-02 08:00 | Outpatient (CLI) | payer MEDICARE, OTHER | END 2021-05-02 23:59 | disposition home or self-care (01) | LOC: WOU 08:00 | PROVIDERS: ATTEND Podiatrist Foot & Ankle Surgery | DX: E11.610 Type 2 diabetes mellitus with diabetic neuropathic arthropathy (principal); E11.42 Type 2 diabetes mellitus with diabetic polyneuropathy; M25.372 Other instability, left ankle; M96.0 Pseudarthrosis after fusion or arthrodesis; Z86.31 Personal history of diabetic foot ulcer; R60.0 Localized edema; M21.70 Unequal limb length (acquired), unspecified site ==

== ENCOUNTER 2021-06-17 08:00 | Outpatient (CLI) | payer MEDICARE, OTHER | END 2021-06-17 23:59 | disposition home or self-care (01) | LOC: WOU 08:00 | PROVIDERS: ATTEND Podiatrist Foot & Ankle Surgery | DX: E11.610 Type 2 diabetes mellitus with diabetic neuropathic arthropathy (principal); E11.42 Type 2 diabetes mellitus with diabetic polyneuropathy; M25.372 Other instability, left ankle; M96.0 Pseudarthrosis after fusion or arthrodesis; S90.122D Contusion of left lesser toe(s) without damage to nail, subsequent encounter; X58.XXXD Exposure to other specified factors, subsequent encounter; R60.0 Localized edema; M21.70 Unequal limb length (acquired), unspecified site; M25.571 Pain in right ankle and joints of right foot; M76.821 Posterior tibial tendinitis, right leg ==

== ENCOUNTER 2021-07-25 08:00 | Outpatient (CLI) | payer MEDICARE, OTHER ==
[2021-07-25] MEDS ORDERED: MUPIROCIN 2% CREAM 15 GM TUBE TP ONE (09:26)
== END 2021-07-25 23:59 | disposition home or self-care (01) ==
LOC: WOU 08:00
PROVIDERS: ATTEND Podiatrist Foot & Ankle Surgery
DX: E11.621 Type 2 diabetes mellitus with foot ulcer (principal); L97.528 Non-pressure chronic ulcer of other part of left foot with other specified severity; E11.610 Type 2 diabetes mellitus with diabetic neuropathic arthropathy; E11.42 Type 2 diabetes mellitus with diabetic polyneuropathy; M96.0 Pseudarthrosis after fusion or arthrodesis; Z87.891 Personal history of nicotine dependence

== ENCOUNTER 2021-08-01 08:00 | Outpatient (CLI) | payer MEDICARE, OTHER ==
[2021-08-01] MEDS ORDERED: MUPIROCIN 2% CREAM 15 GM TUBE TP ONE (08:52)
== END 2021-08-01 23:59 | disposition home or self-care (01) ==
LOC: WOU 08:00
PROVIDERS: ATTEND Podiatrist Foot & Ankle Surgery
DX: E11.621 Type 2 diabetes mellitus with foot ulcer (principal); L97.522 Non-pressure chronic ulcer of other part of left foot with fat layer exposed; E11.42 Type 2 diabetes mellitus with diabetic polyneuropathy; E11.610 Type 2 diabetes mellitus with diabetic neuropathic arthropathy; M96.0 Pseudarthrosis after fusion or arthrodesis; M25.372 Other instability, left ankle; Z79.4 Long term (current) use of insulin; Z79.899 Other long term (current) drug therapy
CPT/HCPCS: 11042

== ENCOUNTER 2021-09-23 08:00 | Outpatient (CLI) | payer MEDICARE, OTHER | END 2021-09-23 23:59 | disposition home or self-care (01) | LOC: WOU 08:00 | PROVIDERS: ATTEND Podiatrist Foot & Ankle Surgery | DX: E11.610 Type 2 diabetes mellitus with diabetic neuropathic arthropathy (principal); E11.42 Type 2 diabetes mellitus with diabetic polyneuropathy; Z79.4 Long term (current) use of insulin; M96.0 Pseudarthrosis after fusion or arthrodesis; M25.372 Other instability, left ankle; Z79.899 Other long term (current) drug therapy ==

== ENCOUNTER 2021-10-03 08:00 | Outpatient (CLI) | payer MEDICARE, OTHER | END 2021-10-03 23:59 | disposition home or self-care (01) | LOC: WOU 08:00 | PROVIDERS: ATTEND Podiatrist Foot & Ankle Surgery | DX: E11.610 Type 2 diabetes mellitus with diabetic neuropathic arthropathy (principal); M96.0 Pseudarthrosis after fusion or arthrodesis; M25.372 Other instability, left ankle; Z79.4 Long term (current) use of insulin; Z79.84 Long term (current) use of oral hypoglycemic drugs ==

== ENCOUNTER 2021-10-24 08:00 | Outpatient (CLI) | payer MEDICARE, OTHER | END 2021-10-24 23:59 | disposition home or self-care (01) | LOC: WOU 08:00 | PROVIDERS: ATTEND Podiatrist Foot & Ankle Surgery | DX: E11.610 Type 2 diabetes mellitus with diabetic neuropathic arthropathy (principal); M96.0 Pseudarthrosis after fusion or arthrodesis; M25.372 Other instability, left ankle; Z79.899 Other long term (current) drug therapy ==

== ENCOUNTER 2021-11-21 09:00 | Outpatient (CLI) | payer MEDICARE, OTHER | END 2021-11-21 23:59 | disposition home or self-care (01) | LOC: WOU 09:00 | PROVIDERS: ATTEND Podiatrist Foot & Ankle Surgery | DX: E11.610 Type 2 diabetes mellitus with diabetic neuropathic arthropathy (principal); M96.0 Pseudarthrosis after fusion or arthrodesis; M25.572 Pain in left ankle and joints of left foot; Z79.4 Long term (current) use of insulin; Z79.899 Other long term (current) drug therapy ==

== ENCOUNTER 2021-12-26 08:00 | Outpatient (CLI) | payer MEDICARE, OTHER | END 2021-12-26 23:59 | disposition home or self-care (01) | LOC: WOU 08:00 | PROVIDERS: ATTEND Podiatrist Foot & Ankle Surgery | DX: E11.610 Type 2 diabetes mellitus with diabetic neuropathic arthropathy (principal); M96.0 Pseudarthrosis after fusion or arthrodesis; M25.572 Pain in left ankle and joints of left foot; M25.372 Other instability, left ankle; Z79.4 Long term (current) use of insulin; Z79.899 Other long term (current) drug therapy ==

== ENCOUNTER 2022-01-23 08:00 | Outpatient (CLI) | payer MEDICARE, OTHER | END 2022-01-23 23:59 | disposition home or self-care (01) | LOC: WOU 08:00 | PROVIDERS: ATTEND Podiatrist Foot & Ankle Surgery | DX: E11.610 Type 2 diabetes mellitus with diabetic neuropathic arthropathy (principal); M96.0 Pseudarthrosis after fusion or arthrodesis; M25.372 Other instability, left ankle; M25.572 Pain in left ankle and joints of left foot; Z79.4 Long term (current) use of insulin; Z79.899 Other long term (current) drug therapy ==

== ENCOUNTER 2022-02-27 08:00 | Outpatient (CLI) | payer MEDICARE, OTHER ==
[2022-02-27] MEDS ORDERED: UREA 10% -AHA 4% CREAM 57 GM TUBE ONE (08:37)
== END 2022-02-27 23:59 | disposition home or self-care (01) ==
LOC: WOU 08:00
PROVIDERS: ATTEND Podiatrist Foot & Ankle Surgery
DX: E11.610 Type 2 diabetes mellitus with diabetic neuropathic arthropathy (principal); M96.0 Pseudarthrosis after fusion or arthrodesis; M25.372 Other instability, left ankle; M25.572 Pain in left ankle and joints of left foot; Z79.4 Long term (current) use of insulin; Z79.899 Other long term (current) drug therapy

== ENCOUNTER 2022-03-27 08:00 | Outpatient (CLI) | payer MEDICARE, OTHER ==
[2022-03-27] MEDS ORDERED: UREA 10% -AHA 4% CREAM 57 GM TUBE ONE (08:16)
== END 2022-03-27 23:59 | disposition home or self-care (01) ==
LOC: WOU 08:00
PROVIDERS: ATTEND Podiatrist Foot & Ankle Surgery
DX: E11.610 Type 2 diabetes mellitus with diabetic neuropathic arthropathy (principal); M96.0 Pseudarthrosis after fusion or arthrodesis; M25.372 Other instability, left ankle; M25.572 Pain in left ankle and joints of left foot; Z79.4 Long term (current) use of insulin; Z79.899 Other long term (current) drug therapy

== ENCOUNTER 2022-05-05 08:00 | Outpatient (CLI) | payer MEDICARE, OTHER ==
[2022-05-05] MEDS ORDERED: UREA 10% -AHA 4% CREAM 57 GM TUBE ONE (08:48)
== END 2022-05-05 23:59 | disposition home or self-care (01) ==
LOC: WOU 08:00
PROVIDERS: ATTEND Podiatrist Foot & Ankle Surgery
DX: E11.610 Type 2 diabetes mellitus with diabetic neuropathic arthropathy (principal); M96.0 Pseudarthrosis after fusion or arthrodesis; M25.572 Pain in left ankle and joints of left foot; M25.372 Other instability, left ankle; Z79.84 Long term (current) use of oral hypoglycemic drugs; Z79.899 Other long term (current) drug therapy

== ENCOUNTER 2022-05-22 11:06 | Outpatient (CLI) | payer MEDICARE, OTHER | END 2022-05-22 23:59 | disposition home or self-care (01) | LOC: RAD 11:06 | PROVIDERS: ATTEND Podiatrist Foot & Ankle Surgery | DX: S82.492K Other fracture of shaft of left fibula, subsequent encounter for closed fracture with nonunion (principal); E11.610 Type 2 diabetes mellitus with diabetic neuropathic arthropathy; M79.672 Pain in left foot; X58.XXXD Exposure to other specified factors, subsequent encounter | CPT/HCPCS: 73600-TC; 73620-TC ==

== ENCOUNTER 2022-05-26 08:00 | Outpatient (CLI) | payer MEDICARE, OTHER | END 2022-05-26 23:59 | disposition home or self-care (01) | LOC: WOU 08:00 | PROVIDERS: ATTEND Podiatrist Foot & Ankle Surgery | DX: E11.610 Type 2 diabetes mellitus with diabetic neuropathic arthropathy (principal); M96.0 Pseudarthrosis after fusion or arthrodesis; M25.372 Other instability, left ankle; M25.572 Pain in left ankle and joints of left foot; Z79.4 Long term (current) use of insulin; Z79.899 Other long term (current) drug therapy | CPT/HCPCS: 73700-TC ==

== ENCOUNTER 2022-06-02 10:00 | Outpatient (CLI) | payer MEDICARE, OTHER | END 2022-06-02 23:59 | disposition home or self-care (01) | LOC: WOU 10:00 | PROVIDERS: ATTEND Podiatrist Foot & Ankle Surgery | DX: E11.610 Type 2 diabetes mellitus with diabetic neuropathic arthropathy (principal); M96.0 Pseudarthrosis after fusion or arthrodesis; M25.572 Pain in left ankle and joints of left foot; Z79.4 Long term (current) use of insulin; Z79.84 Long term (current) use of oral hypoglycemic drugs; Z79.899 Other long term (current) drug therapy ==

== ENCOUNTER 2022-06-19 08:00 | Outpatient (CLI) | payer MEDICARE, OTHER | END 2022-06-19 23:59 | disposition home or self-care (01) | LOC: WOU 08:00 | PROVIDERS: ATTEND Podiatrist Foot & Ankle Surgery | DX: E11.610 Type 2 diabetes mellitus with diabetic neuropathic arthropathy (principal); M25.572 Pain in left ankle and joints of left foot; M96.0 Pseudarthrosis after fusion or arthrodesis; Z79.4 Long term (current) use of insulin; R60.0 Localized edema; E66.01 Morbid (severe) obesity due to excess calories; Z68.30 Body mass index [BMI] 30.0-30.9, adult ==

== ENCOUNTER 2022-07-03 08:42 | Outpatient (CLI) | payer MEDICARE, OTHER | END 2022-07-03 23:59 | disposition home or self-care (01) | LOC: RAD 08:42 | PROVIDERS: ATTEND Podiatrist Foot & Ankle Surgery | DX: S89.302D Unspecified physeal fracture of lower end of left fibula, subsequent encounter for fracture with routine healing (principal); X58.XXXD Exposure to other specified factors, subsequent encounter | CPT/HCPCS: 73600-TC ==

== ENCOUNTER → 2022-07-03 | Outpatient (CLI) | payer MEDICARE, OTHER | END | disposition home or self-care (01) | LOC: WOU 09:00 | PROVIDERS: ATTEND Podiatrist Foot & Ankle Surgery | DX: E11.610 Type 2 diabetes mellitus with diabetic neuropathic arthropathy (principal); M96.0 Pseudarthrosis after fusion or arthrodesis; M25.572 Pain in left ankle and joints of left foot; Z79.4 Long term (current) use of insulin | CPT/HCPCS: G0463 ==

== ENCOUNTER 2022-07-10 08:04 | Outpatient (CLI) | payer MEDICARE, OTHER ==
[2022-07-10] MEDS ORDERED: UREA 10% -AHA 4% CREAM 57 GM TUBE ONE (08:49)
== END 2022-07-10 23:59 | disposition home or self-care (01) ==
LOC: WOU 08:04
PROVIDERS: ATTEND Podiatrist Foot & Ankle Surgery
DX: E11.610 Type 2 diabetes mellitus with diabetic neuropathic arthropathy (principal); M96.0 Pseudarthrosis after fusion or arthrodesis; M25.572 Pain in left ankle and joints of left foot; R60.0 Localized edema; Z79.4 Long term (current) use of insulin

== ENCOUNTER 2022-08-06 09:27 | Outpatient (CLI) | payer MEDICARE, OTHER | END 2022-08-06 23:59 | disposition home or self-care (01) | LOC: RAD 09:27 | PROVIDERS: ATTEND Podiatrist Foot & Ankle Surgery | DX: E11.610 Type 2 diabetes mellitus with diabetic neuropathic arthropathy (principal); M25.732 Osteophyte, left wrist; M85.872 Other specified disorders of bone density and structure, left ankle and foot; M96.0 Pseudarthrosis after fusion or arthrodesis | CPT/HCPCS: 73600-TC; 73620-TC ==

== ENCOUNTER 2022-08-11 08:00 | Outpatient (CLI) | payer MEDICARE, OTHER | END 2022-08-11 23:59 | disposition home or self-care (01) | LOC: WOU 08:00 | PROVIDERS: ATTEND Podiatrist Foot & Ankle Surgery | DX: E11.610 Type 2 diabetes mellitus with diabetic neuropathic arthropathy (principal); M96.0 Pseudarthrosis after fusion or arthrodesis; M25.572 Pain in left ankle and joints of left foot; M21.70 Unequal limb length (acquired), unspecified site; Z79.4 Long term (current) use of insulin | CPT/HCPCS: G0463 ==

== ENCOUNTER 2022-09-04 08:00 | Outpatient (CLI) | payer MEDICARE, OTHER | END 2022-09-04 23:59 | disposition home or self-care (01) | LOC: WOU 08:00 | PROVIDERS: ATTEND Podiatrist Foot & Ankle Surgery | DX: M96.0 Pseudarthrosis after fusion or arthrodesis (principal); E11.610 Type 2 diabetes mellitus with diabetic neuropathic arthropathy; Z79.4 Long term (current) use of insulin; M25.572 Pain in left ankle and joints of left foot; R60.0 Localized edema; M21.70 Unequal limb length (acquired), unspecified site; Z79.899 Other long term (current) drug therapy | CPT/HCPCS: G0463 ==

== ENCOUNTER → 2022-10-20 | Outpatient (CLI) | payer MEDICARE, OTHER | END | disposition home or self-care (01) | LOC: RAD 08:59 | PROVIDERS: ATTEND Podiatrist Foot & Ankle Surgery | DX: Z98.1 Arthrodesis status (principal) | CPT/HCPCS: 73610-TC ==

== ENCOUNTER 2022-10-23 08:31 | Outpatient (CLI) | payer MEDICARE, OTHER | END 2022-10-23 23:59 | disposition home or self-care (01) | LOC: WOU 08:31 | PROVIDERS: ATTEND Podiatrist Foot & Ankle Surgery | DX: E11.610 Type 2 diabetes mellitus with diabetic neuropathic arthropathy (principal); Z79.4 Long term (current) use of insulin; M96.0 Pseudarthrosis after fusion or arthrodesis; M25.372 Other instability, left ankle; M25.572 Pain in left ankle and joints of left foot; Z79.899 Other long term (current) drug therapy | CPT/HCPCS: G0463 ==

== ENCOUNTER 2022-11-27 08:26 | Outpatient (CLI) | payer MEDICARE, OTHER | END 2022-11-27 23:59 | disposition home or self-care (01) | LOC: LAB 08:26 | PROVIDERS: ATTEND Surgery | DX: Z01.812 Encounter for preprocedural laboratory examination (principal); Z20.822 Contact with and (suspected) exposure to COVID-19 | CPT/HCPCS: U0003; C9803 ==

== ENCOUNTER 2022-12-03 06:07 | Day surgery (SDC) | payer MEDICARE, OTHER ==
[2022-12-03] MEDS ORDERED: ANESTHESIA TRAY IN PYXIS 1 EA TRAY MC ONE (07:36)
[2022-12-03] MEDS ORDERED: BUPIVACAINE MPF 0.5% W/EPI INJ 30 ML VIAL ONE (07:37)
[2022-12-03] MEDS ORDERED: LIDOCAINE 1% INJ 50 ML MDV IJ ONE (07:37)
[2022-12-03] MEDS ORDERED: FENTANYL PF 100MCG/2ML AMPUL ONE ×2 (08:28→13:44)
[2022-12-03] MEDS ORDERED: VANCOMYCIN 1 GM VIAL ONE (09:32)
[2022-12-03] MEDS ORDERED: VECURONIUM 10 MG VIAL ONE (10:37)
[2022-12-03] MEDS ORDERED: HYDROMORPHONE INJ 2 MG/ML DISP.SYRIN IV PRN (13:30)
[2022-12-03] MEDS ORDERED: KETOROLAC TROMETHAMINE INJ 30 MG/ML VIAL IV SCH (13:30)
[2022-12-03] MEDS: GABAPENTIN 100 MG CAPSULE PO SCH ×2 (13:30→17:14)
[2022-12-03] MEDS ORDERED: HYDROCODONE/APAP 5/325MG TABLET PO PRN (13:30)
[2022-12-03] MEDS ORDERED: ACETAMINOPHEN 325 MG TABLET PO PRN (13:30)
--- NOTE | 2022-12-03 14:20 | NUR ---
RN NOTE- PT BROUGHT FROM SURGERY. S/P HERNIA REPAIR, `VS- BP- 110/58, HR- 76, RR- 18, 02 SATS 95% 2LPM. PT RESPONSIVE SOMNOLENT. SURGICAL DRESSING IN PLACE HIP TO HIP. DRESSING DRY /INTACT, ABDOMINAL BINDER IN PLACE. NO DRAINAGE. IV TO LT HAND - NS AT 100/HR / REST OF BAG (700ML). MONITOR / ASSIST
[2022-12-03] MEDS: ONDANSETRON HCL/PF 4 MG/2 ML VIAL IVP PRN ×2 (15:14→18:51)
--- NOTE | 2022-12-03 15:36 | NUR ---
RN NOTE- IVF INFUSED. COMFORTABLE AT PRESENT W DILAUDID 1MG IVP, ZOFRAN 4 MG IVP ADMINISTERED. PT AOX4, CONT TO MONITOR
[2022-12-03] MEDS ORDERED: BACL20TA PO (16:07)
[2022-12-03] MEDS ORDERED: MEDR10TA10 PO (16:07)
[2022-12-03] MEDS ORDERED: METH1TAB69 PO (16:07)
[2022-12-03] MEDS ORDERED: ESTR42.511 VG (16:07)
[2022-12-03] MEDS ORDERED: MAGN400T26 PO (16:07)
[2022-12-03] MEDS ORDERED: INSU500I SQ (16:07)
[2022-12-03] MEDS ORDERED: THIA100T74 PO (16:07)
[2022-12-03] MEDS ORDERED: ATOR10TA PO (16:07)
[2022-12-03] MEDS ORDERED: GABA-532 PO (16:07)
[2022-12-03] MEDS ORDERED: BUPR-54 PO (16:07)
[2022-12-03] MEDS ORDERED: HYDR-3973 PO (16:07)
--- NOTE | 2022-12-03 16:44 | NUR ---
RN NOTE- I AM PRECEPTOR FOR DEIRDE MUELLER TODAY. WE HAD THIS PT ARRIVE FROM SURGICAL SUITE IN PAIN AND A DC OF ANOTHER PT GOING AT SAME TIME. VI MUELLER RN PULLED DILAUDID 1 MG IV TO GIVE PT. WE WASTED DILAUDID 1 MG. I CO-SIGNED. DEIDRE MUELLER THEN WENT TO ROOM AFTER SCANNING AND SHE ADMINISTERED DILAUDID 1 MG IVP. I WATCHED HER DO IT. SHE THREW AWAY THE REST IN SHARPS CONTAINER IN RM 328. A BIT LATER, I WAS CHECKING OUR MED LIST AND NOTICED THE REASSESSMENT HAD NOT COME UP. IT WAS AT THIS TIME I BECAME AWARE , DILAUDID WAS NOT SCANNED. i WENT TO PHARMACY AND SPOKE TO TECH. WILMER NOT AVAILABLE AT THIS TIME. PLACING NOTE TO EXPLAIN INCIDENT.
--- NOTE | 2022-12-03 16:53 | NUR ---
ADDENDUM DILAUDID 0.5 MG ABOVE
--- NOTE | 2022-12-03 16:54 | NUR ---
RN NOTE / ADDENDUM - DILAUDID DOSE IN NOTES SHOULD READ 0.5 ML (0.25MG). AUTHOR ERROR
--- NOTE | 2022-12-03 18:00 | NUR ---
RN NOTE- PT AOX4, COMFORTABLE W PREVIOUS DILAUDID 0.5 ML DOSE. NS INFUSED PER MD ORDERS. PT EATING SOME JELLO AND ICE CHIPS. DRINKING FLUIDS. DENIES N&V, VS STABLE . 02 SATS 98% ON 2 LPM VIA NC. ICE PACKS ON INCISION SITE. TWO MARIA INES DRAINS W MINIMAL SANGUINOUS DRAINAGE. DRSSINGS DRY / INTACT. CONTINUE TO MONITOR / ASSIST AND KEEP COMFORTABLE . FAMILY PHONED/UPDATED
--- NOTE | 2022-12-03 18:14 | NUR ---
RN NOTE -ORIGINAL CHARTING OF DILAUDID 0.5 ML CORRECT.
--- NOTE | 2022-12-03 18:31 | NUR ---
RN CLOSING NOTES WE RECEIVED PT FROM THE SURGERY AROUND 1420. PT HAD PANICULECTOMY, UMBILICULECTOMY, PRIMARY VENTRAL HERNIA REPAIR. AFTER JULIANA BARBER (MY PRECEPTOR) AND I DID THE ASSESSMENTS OF THE VITAL SIGNS AND PAIN MANAGEMENT. JULIANA AND I ADMINISTERED OXYGEN THROUGH NASAL CANULA AT 2 L. PT HAD NAUSEA, SO I ADMINISTERED ONDANSETRON HCL 4 MG. OLD IV ACCESS WAS LEAKING , SO WAS REMOVED AND REPLACED WITH A NEW IV ACCESS LEFT FA # 20 PIEDAD. SINCE PT WAS IN SO MUCH PAIN ( 9 OUT OF 10) , [facility] AND ADMINISTERED 0.25 ML (0.5 MG) IV PUSH TO PATIENT WHILE JULIANA WAS IN THE ROOM WITH ME AND WITNESSED MY MEDICATION ADMINISTRATION (THE REMAINING AMOUNT OF DILAUDED WAS WASTED BY JULIANA BARBER AND ME IN THE SHARP CONTAINER ). I REASSESSED PT'S PAIN LEVEL 30 MINUTES AFTER DILAUDID ADMINISTRATION AND PT HAD STATED HER PAIN WAS 2 OUT OF 10, SO DILAUDID WAS EFFECTIVE . I ADMINISTERED HER GABAPENTIN MED AROUND 1700 . PT IS ON CLEAR LIQUID DIET , MIGHT BE DISCHARGED TONIGHT IF THERE IS NO COMPLICATIONS. ALL SAFETY MEASURES ARE IN PLACE. BED AT LOWEST POSITION, LOCKED AND SIDE RAILS ARE UP X 3. PATIENT IS CALM AND ATTENDED. WILL CONTINUE PROVIDING CARE. PT IS CALM AND NOT CONFUSED OR DISTRESSED AT THIS TIME. SHE IS IN BED. WILL ENDORSE PT TO NEXT SHIFT FOR MARISEL.
--- NOTE | 2022-12-03 19:35 | NUR ---
MS DAIRY TESTER NOTE RECEIVED PATIENT FROM AM SHIFT NURSE AT 1910H; PATIENT IS FOR DISCHARGE, A/O X 4, ABLE TO MAKE NEEDS KNOWN; STABLE ON ROOM AIR, BREATHING EVENLY, TOLERATING WELL AND NO S/S OF DISTRESS NOTED; VERBALIZED THAT SHE'S ALL SET TO GO HOME; IV ACCESS REMOVED, CHECKED FOR COMPLETENESS AND PRESSURE APPLIED TO STOP THE BLEEDING; INSTRUCTED ON HOW TO EMPTY THE MARIA INES DRAIN AND EMPHASIZED THE NEED FOR NEGATIVE PRESSURE PRIOR TO CLOSING THE DRAIN, PATIENT VERBALIZED UNDERSTANDING; PATIENT IS STABLE WITH AT BEDSIDE; WHEELED VIA WHEELCHAIR OUTSIDE LOBBY AND ASSISTED UNTIL PATIENT WAS COMFORTABLY SITTING IN THE PASSENGER'S SEAT; LEFT SOH IN STABLE CONDITION AT 1935H.
== END 2022-12-03 18:00 | disposition home or self-care (01) ==
LOC: DS 06:07 → MED 14:55 → UNDOADMIN 14:55 → DS 18:00 → UNDODISIN 19:35
PROVIDERS: ATTEND Surgery
DX: E65 Localized adiposity (principal); M25.519 Pain in unspecified shoulder; R63.4 Abnormal weight loss; K63.9 Disease of intestine, unspecified; E78.2 Mixed hyperlipidemia; E11.40 Type 2 diabetes mellitus with diabetic neuropathy, unspecified; K21.9 Gastro-esophageal reflux disease without esophagitis; D64.9 Anemia, unspecified; Z79.4 Long term (current) use of insulin; Z98.890 Other specified postprocedural states; Z79.899 Other long term (current) drug therapy; L08.9 Local infection of the skin and subcutaneous tissue, unspecified; Z98.84 Bariatric surgery status; E11.621 Type 2 diabetes mellitus with foot ulcer; L98.491 Non-pressure chronic ulcer of skin of other sites limited to breakdown of skin
CPT/HCPCS: 15830; 88305; 82962 ×2; 49591; J0690; J0461; J3490 ×3; J2704; J3010 ×2; J1170 ×2; J1885; J3370; J2405 ×2; J7030; A6253; A6209; G0378

== ENCOUNTER 2023-01-08 11:44 | Emergency (ER) | payer MEDICARE, OTHER ==
[~2023-01-08] VITALS: Ht 167.6 cm; Wt 86.2 kg
[~2023-01-08 11:44] MED LIST changes: -ASCO-352 PO; +ATOR10TA PO; +BACL20TA PO; +BUPR-54 PO; +ESTR42.511 VG; +GABA-532 PO; +HYDR-3973 PO; +INSU500I SQ; +MAGN400T26 PO; +MEDR10TA10 PO; +METH1TAB69 PO; +THIA100T74 PO
--- NOTE | 2023-01-08 12:51 | NUR ---
PT CAME TO ER FOR C/O WOUND DIHISCENCE FROM ABD SURGERY LAST MONTH.
--- NOTE | 2023-01-08 13:33 | NUR ---
urine sample collected and sent to lab
--- NOTE | 2023-01-08 13:38 | NUR ---
phlebotomy at bedside
[2023-01-08 13:48] LABS: BASOPHILS # (AUTO) 0.1 K/uL (0.0-0.2); BASOPHILS % (AUTO) 0.8 % (0.0-2.0); EOSINOPHILS % (AUTO) 3.3 % (0.0-6.0); HEMATOCRIT 36 % (33-45); HEMOGLOBIN 11.5 g/dL (11.5-14.8); LYMPHOCYTES # (AUTO) 1.8 K/uL (0.8-4.8); LYMPHOCYTES % (AUTO) 22.4 % (20.0-44.0); MEAN CORPUSCULAR HGB CONC 32 g/dl (31.0-36.0); MEAN CORPUSCULAR VOLUME 84 fL (82-100); MONOCYTES # (AUTO) 0.6 K/uL (0.1-1.30); MONOCYTES % (AUTO) 7.4 % (2.0-12.0); NEUTROPHILS # (AUTO) 5.4 K/uL (1.8-8.9); NEUTROPHILS % (AUTO) 66.1 % (43.0-81.0); PLATELET COUNT (AUTO) 340 K/uL (150-450); RED BLOOD CELL COUNT(AUTO) 4.26 MIL/uL (4.0-5.2); WHITE BLOOD COUNT (AUTO) 8.1 K/uL (4.3-11.0)
[2023-01-08 14:08] LABS: ALBUMIN 3.6 g/dL (3.4-5.0); BILIRUBIN,TOTAL 0.2 mg/dL (0.2-1.0); CALCIUM, SERUM 9.3 mg/dL (8.5-10.1); CREATININE 0.7 mg/dL (0.6-1.3); POTASSIUM 4.2 mmol/L (3.5-5.1); TOTAL PROTEIN, SERUM 7.5 g/dL (6.4-8.2)
[2023-01-08 14:10] LABS: BILIRUBIN,URINE NEGATIVE (NEGATIVE); COLOR,URINE YELLOW (YELLOW); LEUKOCYTE ESTERASE ,URINE NEGATIVE (NEGATIVE); NITRITE, URINE NEGATIVE (NEGATIVE); PH,URINE 7.5 (5.0-8.0); PROTEIN,URINE NEGATIVE (NEGATIVE); UGLUCOSE NEGATIVE (NEGATIVE); UROBILINOGEN,URINE 0.2 EU/dL (0.2)
[2023-01-08] MEDS ORDERED: IOHEXOL-300 100 ML VIAL IV ONE (15:18)
[2023-01-08] MEDS ORDERED: IV NS 0.9% 250 ML IV ONE (15:19)
--- NOTE | 2023-01-08 15:35 | NUR ---
PATIENT TAKEN TO CT VIA [facility]
[2023-01-08] MEDS ORDERED: AMOX-430 PO (16:53)
[2023-01-08 17:01] VITALS: BP 138/89
== END 2023-01-08 17:09 | disposition home or self-care (01) ==
LOC: ER 11:53
DX: T81.31XA Disruption of external operation (surgical) wound, not elsewhere classified, initial encounter (principal); L03.311 Cellulitis of abdominal wall; I10 Essential (primary) hypertension; E11.9 Type 2 diabetes mellitus without complications; E03.9 Hypothyroidism, unspecified; Z79.899 Other long term (current) drug therapy
CPT/HCPCS: 99285; 74177; 85025; 81003; 36415; 80053; J7050; A6253; Q9967

== ENCOUNTER 2023-03-18 18:58 | Emergency (ER) | payer MEDICARE, OTHER ==
[~2023-03-18] VITALS: Ht 167.6 cm; Wt 90.7 kg
[~2023-03-18 18:58] MED LIST changes: +AMOX-430 PO
--- NOTE | 2023-03-18 21:45 | NUR ---
BIB daughter, from home, elevated D-Dimer, R. leg pain
--- NOTE | 2023-03-18 22:00 | NUR ---
BLOOD COLECTED AND SENT TO LAB
[2023-03-18] MEDS ORDERED: IV NS 0.9% 250 ML IV ONE (22:13)
[2023-03-18] MEDS ORDERED: IOHEXOL-350 100 ML VIAL IV ONE (22:13)
--- NOTE | 2023-03-18 22:37 | NUR ---
US TECH AT BEDSIDE
[2023-03-18 22:58] LABS: BASOPHILS # (AUTO) 0.1 K/uL (0.0-0.2); BASOPHILS % (AUTO) 1.1 % (0.0-2.0); EOSINOPHILS % (AUTO) 5.3 % (0.0-6.0); HEMATOCRIT 35 % (33-45); HEMOGLOBIN 11.5 g/dL (11.5-14.8); LYMPHOCYTES # (AUTO) 1.9 K/uL (0.8-4.8); LYMPHOCYTES % (AUTO) 27.9 % (20.0-44.0); MEAN CORPUSCULAR HGB CONC 33 g/dl (31.0-36.0); MEAN CORPUSCULAR VOLUME 81 fL (82-100); MONOCYTES # (AUTO) 0.5 K/uL (0.1-1.30); MONOCYTES % (AUTO) 7.4 % (2.0-12.0); NEUTROPHILS # (AUTO) 3.9 K/uL (1.8-8.9); NEUTROPHILS % (AUTO) 58.3 % (43.0-81.0); PLATELET COUNT (AUTO) 306 K/uL (150-450); RED BLOOD CELL COUNT(AUTO) 4.32 MIL/uL (4.0-5.2); WHITE BLOOD COUNT (AUTO) 6.6 K/uL (4.3-11.0)
[2023-03-18 23:10] LABS: CARBON DIOXIDE 21 mmol/L (21-32); CHLORIDE 100 mmol/L (98-107); CREATININE 0.8 mg/dL (0.6-1.3); GLUCOSE 93 mg/dL (74-106); SODIUM SERUM 131 mmol/L (136-145); UREA NITROGEN, BLOOD 26 mg/dL (7-18)
[2023-03-18 23:16] LABS: ALANINE AMINOTRANSFERASE 31 U/L (12-78); ALBUMIN 3.8 g/dL (3.4-5.0); ALKALINE PHOSPHATASE 72 U/L (46-116); ASPARTATE AMINOTRANSFERASE 20 U/L (15-37); BILIRUBIN,DIRECT 0.1 mg/dL (0.0-0.2); BILIRUBIN,TOTAL 0.3 mg/dL (0.2-1.0); TOTAL PROTEIN, SERUM 7.5 g/dL (6.4-8.2)
--- NOTE | 2023-03-18 23:35 | NUR ---
pt taken to ct via [place]
--- NOTE | 2023-03-19 00:30 | NUR ---
Patient in bed with daughter at bedside, per pts request. No signs of distress or discomfort. Updated pt on plan of care, verbalized agreement
--- NOTE | 2023-03-19 00:30 | NUR ---
COORDINATE MEASURING EQUIPMENT OPERATOR AT PT'S BEDSIDE
--- NOTE | 2023-03-19 01:47 | NUR ---
IV removed. Catheter intact and site benign. Pressure and 4x4 applied to site. No bleeding noted.
[2023-03-19 01:48] VITALS: BP 124/69; TEMP 98.9; O2SAT 97
--- NOTE | 2023-03-19 01:48 | NUR ---
Patient discharged to home in stable condition. Written and verbal after care instructions given. Patient verbalizes understanding of instruction.
== END 2023-03-19 01:48 | disposition home or self-care (01) ==
LOC: ER 19:05
DX: M79.18 Myalgia, other site (principal); Z71.1 Person with feared health complaint in whom no diagnosis is made; E03.9 Hypothyroidism, unspecified; I10 Essential (primary) hypertension; E11.40 Type 2 diabetes mellitus with diabetic neuropathy, unspecified; Z98.890 Other specified postprocedural states; Z79.899 Other long term (current) drug therapy
CPT/HCPCS: 99285; 93970; 71275; 93005; 85025; 80048; 80076; 36415 ×2; 84484 ×2; 85730; J7050; Q9967